=== PATIENT | female | born 1950 | race Caucasian/White ===

== ENCOUNTER 2018-04-06 01:42 | Outpatient (CLI) | payer MEDICARE, BC, SELFPAY ==
[2018-04-06 08:54] LABS: HCT 47.5 % (36.0-46.0); Mean Corp. HGB Concentration 33.7 g/dL (32.0-36.0); Mean Corpuscular Hemoglobin 29.8 pg (27.0-33.0); Mean Corpuscular Volume 88.5 fL (80-95); Mean Platelet Volume 11.8 fL (8.0-11.0); Platelet Count 253 x1000/uL (130-400); RBC 5.37 m/cumm (4.00-5.20); RBC Distribution Width 13.8 % (11.7-14.6); White Blood Cell Count 7.97 k/cumm (4.4-10.8)
[2018-04-06 09:44] LABS: ALT 16 U/L (12-78); AST 13 U/L (15-37); Albumin 3.9 g/dL (3.4-5.0); Alkaline Phosphatase 81 U/L (46-116); Anion Gap 12.8 mmol/L (3-11); BUN 11 mg/dL (7-18); Bilirubin, Total 0.7 mg/dL (0.2-1.0); CO2 25.2 mmol/L (21.0-32.0); CREATININE 0.82 mg/dL (0.55-1.02); Calcium 9.3 mg/dL (8.5-10.1); Chloride 104 mmol/L (98-107); Cholesterol 315 mg/dL (50-200); Glucose 95 mg/dL (70-100); HDL Cholesterol 50 mg/dL (40-60); LDL CHOLESTEROL 239 mg/dL (<100); Potassium 3.2 mmol/L (3.5-5.1); Sodium 142 mmol/L (136-145); TSH (W/Ref FT4) 0.97 uIU/mL (0.358-3.74); Total Protein 6.8 g/dL (6.4-8.2); Triglyceride 180 mg/dL (30-150)
== END 2018-04-06 02:02 ==
PROVIDERS: PCP Student in an Organized Health Care Education/Training Program; Visit Provider Student in an Organized Health Care Education/Training Program
DX: E78.5 Hyperlipidemia, unspecified (principal); F41.9 Anxiety disorder, unspecified; R53.83 Other fatigue; K52.839 Microscopic colitis, unspecified; M81.0 Age-related osteoporosis without current pathological fracture; Z79.899 Other long term (current) drug therapy; Z92.29 Personal history of other drug therapy
CPT/HCPCS: 36415; 80053; 80061; 83721; 85027; 84443

== ENCOUNTER 2018-04-28 01:08 | Outpatient (CLI) | payer MEDICARE, BC, SELFPAY ==
--- NOTE | 2018-04-28 07:16 | DI.US_ITS ---
SYMPTOM/DIAGNOSIS: LOCALIZED PAIN, LT MID-UPPER QUAD, COLITIS, R10.12, K52.839 ABDOMEN ULTRASOUND: The liver is normal in size and echogenicity. The gallbladder is unremarkable without evidence of stones or wall thickening. No biliary dilatation is seen. The kidneys, spleen and pancreas are unremarkable. There is some calcification in the abdominal aorta which is normal in diameter. IMPRESSION: Negative abdomen ultrasound.
== END 2018-04-28 01:28 ==
PROVIDERS: PCP Student in an Organized Health Care Education/Training Program; Visit Provider Student in an Organized Health Care Education/Training Program
DX: R10.12 Left upper quadrant pain (principal); K52.839 Microscopic colitis, unspecified
CPT/HCPCS: 76700

== ENCOUNTER 2018-06-16 13:49 | Outpatient (CLI) | payer MEDICARE, BC, SELFPAY ==
[2018-06-16 14:56] LABS: Anion Gap 9.7 mmol/L (3-11); BUN 9 mg/dL (7-18); CO2 30.3 mmol/L (21.0-32.0); CREATININE 0.83 mg/dL (0.55-1.02); Calcium 9.1 mg/dL (8.5-10.1); Chloride 105 mmol/L (98-107); Glucose 98 mg/dL (70-100); HCT 44.3 % (36.0-46.0); HGB 15.1 g/dL (12.0-15.5); Mean Corp. HGB Concentration 34.1 g/dL (32.0-36.0); Mean Corpuscular Hemoglobin 30.2 pg (27.0-33.0); Mean Corpuscular Volume 88.6 fL (80-95); Mean Platelet Volume 11.9 fL (8.0-11.0); Platelet Count 257 x1000/uL (130-400); Potassium 3.3 mmol/L (3.5-5.1); RBC Distribution Width 14.3 % (11.7-14.6); Sodium 145 mmol/L (136-145); White Blood Cell Count 7.14 k/cumm (4.4-10.8)
== END 2018-06-16 14:09 ==
PROVIDERS: PCP Student in an Organized Health Care Education/Training Program; Visit Provider Student in an Organized Health Care Education/Training Program
DX: R71.8 Other abnormality of red blood cells (principal); D58.2 Other hemoglobinopathies; K58.9 Irritable bowel syndrome, unspecified; K52.839 Microscopic colitis, unspecified; E87.6 Hypokalemia
CPT/HCPCS: 36415; 80048; 85027; 83735

== ENCOUNTER 2018-07-07 11:13 | Outpatient (CLI) | payer MEDICARE, BC, SELFPAY ==
[2018-07-07 13:13] LABS: Potassium 3.6 mmol/L (3.5-5.1)
== END 2018-07-07 11:33 ==
PROVIDERS: PCP Student in an Organized Health Care Education/Training Program; Visit Provider Student in an Organized Health Care Education/Training Program
DX: E87.6 Hypokalemia (principal)
CPT/HCPCS: 36415; 84132

== ENCOUNTER 2018-08-24 14:00 | Outpatient (CLI) | payer MEDICARE, BC, SELFPAY ==
[2018-08-24 15:12] LABS: Anion Gap 9.8 mmol/L (3-11); BUN 13 mg/dL (7-18); CO2 27.2 mmol/L (21.0-32.0); CREATININE 0.84 mg/dL (0.55-1.02); Calcium 9.4 mg/dL (8.5-10.1); Chloride 104 mmol/L (98-107); Glucose 108 mg/dL (70-100); Potassium 4.1 mmol/L (3.5-5.1); Sodium 141 mmol/L (136-145)
== END 2018-08-24 14:20 ==
PROVIDERS: PCP Student in an Organized Health Care Education/Training Program; Visit Provider Student in an Organized Health Care Education/Training Program
DX: E87.6 Hypokalemia (principal); K58.9 Irritable bowel syndrome, unspecified
CPT/HCPCS: 36415; 80048

== ENCOUNTER 2018-11-04 09:30 | Outpatient (CLI) | payer MEDICARE, BC, SELFPAY ==
[2018-11-04 13:45] LABS: Anion Gap 9.6 mmol/L (3-11); BUN 13 mg/dL (7-18); CO2 29.4 mmol/L (21.0-32.0); CREATININE 0.77 mg/dL (0.55-1.02); Calcium 9.2 mg/dL (8.5-10.1); Chloride 104 mmol/L (98-107); Glucose 97 mg/dL (70-100); Potassium 3.3 mmol/L (3.5-5.1); Sodium 143 mmol/L (136-145)
== END 2018-11-04 09:50 ==
PROVIDERS: PCP Student in an Organized Health Care Education/Training Program; Visit Provider Student in an Organized Health Care Education/Training Program
DX: K58.9 Irritable bowel syndrome, unspecified (principal); Z86.39 Personal history of other endocrine, nutritional and metabolic disease
CPT/HCPCS: 36415; 80048

== ENCOUNTER 2018-11-13 15:52 | Outpatient (CLI) | payer MEDICARE, BC, SELFPAY ==
[2018-11-13 17:00] LABS: Anion Gap 9.9 mmol/L (3-11); BUN 15 mg/dL (7-18); CO2 28.1 mmol/L (21.0-32.0); CREATININE 1.02 mg/dL (0.55-1.02); Calcium 9.4 mg/dL (8.5-10.1); Chloride 104 mmol/L (98-107); Estimated GFR 53.73 (mL/min/1.73m2); Glucose 106 mg/dL (70-100); Potassium 4.3 mmol/L (3.5-5.1); Sodium 142 mmol/L (136-145)
== END 2018-11-13 16:12 ==
PROVIDERS: PCP Student in an Organized Health Care Education/Training Program; Visit Provider Student in an Organized Health Care Education/Training Program
DX: E87.6 Hypokalemia (principal)
CPT/HCPCS: 36415; 80048

== ENCOUNTER 2019-11-10 02:38 | Outpatient (CLI) | payer MEDICARE, BC, SELFPAY ==
[2019-11-10 16:30] LABS: Anion Gap 9.2 mmol/L (3-11); BUN 14 mg/dL (7-18); CO2 27.8 mmol/L (21.0-32.0); Calcium 9.2 mg/dL (8.5-10.1); Chloride 105 mmol/L (98-107); Glucose 86 mg/dL (74-106); Sodium 142 mmol/L (136-145)
== END 2019-11-10 02:58 ==
PROVIDERS: PCP Student in an Organized Health Care Education/Training Program; Visit Provider Student in an Organized Health Care Education/Training Program
DX: K58.9 Irritable bowel syndrome, unspecified (principal); E87.6 Hypokalemia
CPT/HCPCS: 36415; 80048

== ENCOUNTER 2021-02-19 01:50 | Outpatient (CLI) | payer MEDICARE, BC, SELFPAY ==
--- NOTE | 2021-02-19 07:30 | DI.MAMMO_ITS ---
Exam(s) MAMMO SCREENING EXAM: MAMMO SCREENING CLINICAL HISTORY: screening,z12.39 TECHNIQUE: Mammograms were interpreted according to the usual protocol including computer analysis w [email or web address] CAD system, tomosynthesis and C-view imaging. COMPARISON: 2012 and 2014 FINDINGS: The breasts are composed of scattered fibroglandular densities, Breast Density category B. No suspicious masses or suspicious microcalcifications are seen. Stable area of nodularity medial le ft breast. No skin thickening or abnormal axillary lymph nodes are seen. There has been no significant change from prior exams. IMPRESSION: BI-RADS Cat 2 - Benign Findings Yearly screening mammography is recommended. Breast Density - Category B, scattered fibroglandular densities. A negative radiographic report should not delay biopsy if a dominant or clinically suspicious mass is present. Up to ten percent of cancers are not identified on mammography. A negative report may reinforce clinical impression. Adenosis and dense breasts may obscure an underlying neoplasm. False positive reports average 6 to 10%. Patient will receive a letter notifying them of these results.
== END 2021-02-19 02:10 ==
PROVIDERS: PCP Student in an Organized Health Care Education/Training Program; Visit Provider Student in an Organized Health Care Education/Training Program
DX: Z12.31 Encounter for screening mammogram for malignant neoplasm of breast (principal)
CPT/HCPCS: 77063; 77067

== ENCOUNTER 2021-10-05 16:34 | Outpatient (REF) | payer MEDICARE, BC, SELFPAY ==
[2021-10-07 14:36] LABS: COVID-19 RT-PCR UVMMC Result Negative (Negative)
[2021-10-08 14:47] LABS: Influenza A RNA Result Positive (Negative); Influenza B RNA Result Negative (Negative); RSV RNA Result Negative (Negative)
== END 2021-10-05 16:35 | disposition home or self-care (01) ==
LOC: LBN 16:34
PROVIDERS: PCP Student in an Organized Health Care Education/Training Program; Visit Provider Student in an Organized Health Care Education/Training Program
DX: Z20.822 Contact with and (suspected) exposure to COVID-19 (principal); R06.9 Unspecified abnormalities of breathing; R50.9 Fever, unspecified; R09.89 Other specified symptoms and signs involving the circulatory and respiratory systems; J06.9 Acute upper respiratory infection, unspecified
CPT/HCPCS: 87449; 87631; U0003; U0005

== ENCOUNTER 2021-11-19 00:01 | Observation (INO) | payer MEDICARE, BC, SELFPAY ==
[2021-11-19] VITALS (29 sets, daily range): BP systolic 82–115; BP diastolic 46–70; PULSE 49–80; RESP 11–27; TEMP 35.5–37; O2SAT 90–96
--- NOTE | 2021-11-19 | DI.CT_ITS ---
Exam(s) CT ABDOMEN PELVIS WO EXAM: CT ABDOMEN PELVIS WO CLINICAL HISTORY: abdominal pain, diarrhea, weakness, hx colitis. TECHNIQUE: Imaging Protocol: Axial computed tomography images with coronal and sagittal reformatted images were created and reviewed CONTRAST MATERIAL: Intravenous: none Oral: None COMPARISON: No exams were available for comparison FINDINGS: VISUALIZED LUNG BASES: Mild increased markings in the lung bases, more so on the right side. No pleu ral effusions.. ABDOMEN: There is no ascites. LIVER: There are no obvious focal hepatic lesions evident of this noninfused study. GALLBLADDER/BILIARY: No obvious gallbladder pathology. CBD is not dilated. PANCREAS: No evidence of pancreatic mass nor dilatation of the pancreatic duct. SPLEEN: Spleen is not enlarged. No obvious intrasplenic lesions. ADRENALS: There are no significant adrenal masses. KIDNEYS:No cysts evident. No solid renal masses. No calculi nor hydronephrosis. . ABDOMINAL AORTA: There is a mild fusiform infrarenal abdominal aortic aneurysm which exhibits maximum external diameter 2.4 cm. Common iliac arteries exhibit normal diameters. LYMPH NODES: There is no retroperitoneal nor paraaortic adenopathy. ABDOMINAL WALL: No evidence of significant anterior abdominal wall nor inguinal hernia. GI: There is no evidence of bowel obstruction, free air, nor abscess. PELVIS: LYMPH NODES: There is no intrapelvic nor inguinal adenopathy. GI: No evidence of appendicitis.No evidence of sigmoid diverticulitis. URINARY BLADDER: No calculi nor obvious masses evident REPRODUCTIVE: Unremarkable OSSEOUS: No significant osseous lesions. IMPRESSION: 1. No obvious acute findings in the abdomen pelvis. If clinically indicated this study could be repe ated with oral and IV contrast. 2. Mild fusiform infrarenal abdominal aortic aneurysm with maximum external diameter of 2.4 cm. 3. No ascites. RADIATION DOSE DELIVERED: 620.15mGy.cm Total DLP DATA REPOSITORY: All CT scans at this facility are submitted to the National Radiology Data Registry (NRDR) Dose Index Registry (DIR) with the [employer] (ACR). RADIATION OPTIMIZATION: All CT scans at this facility use at least one of these dose optimization te chniques: automated exposure control; mA and/or kV adjustment per patient size (includes targeted exa ms where dose is matched to clinical indication); or iterative reconstruction.
--- NOTE | 2021-11-19 | RT.EKG_ITS ---
APPROVED REPORT Exam: Resting ECG Reason for Exam: weakness Patient Location: E HR:61 bpm ECG Measurements Heart Rate 61 AXIS MA 162 P 74 QRSd 83 QRS 7 QT 438 T 36 QTc 442 Conclusion Sinus rhythm...normal P axis, V-rate 60- 99 Low voltage, extremity and precordial leads...extremity<0.5mV, precordial<1.0mV sinus rhythm, normal axis, normal intervals, non ischemic
--- NOTE | 2021-11-19 00:06 | DI.RAD_ITS ---
Exam(s) XR CHEST 1V IN DI DEPT EXAM: XR CHEST 1V IN DI DEPT CLINICAL HISTORY: fatigue,weakness, hypotension. TECHNIQUE: 2D digital imaging was performed. COMPARISON: No exams were available for comparison FINDINGS: Single AP portable view. Heart size is upper normal. The mediastinum is not widened. Lungs are clear. No infiltrates nor obvious pleural effusions. IMPRESSION: No acute pulmonary findings on this single AP portable view of the chest. DATA REPOSITORY: RADIATION DOSE DELIVERED: All CT scans at this facility use at least one of these dose optimization techniques: automated exposure control; mA and/or kV adjustment per patient size (includes targeted e xams where dose is matched to clinical indication); or iterative reconstruction.
--- NOTE | 2021-11-19 00:11 | ED.GENADUL_ITS ---
Discharge Plan Disposition Patient Disposition: [facility] INPATIENT Condition: Stable Discharge Details Chief Complaint: Nausea/Vomit/Diar Clinical Impression: Enterocolitis, Dehydration Primary Care Provider: Amparo Brewer ED Provider: Gino Sorto Home Meds and New Rx's Prescriptions: No Action potassium chloride 20 mEq tablet extended release 20 meq PO DAILY Qty: 30 1RF Rx Instructions: 5 days of K, then recheck with labs. tumeric 1 cap PO DAILY probiotics 1 tab PO DAILY lorazepam 0.5 mg tablet 0.5 mg PO ONCE Qty: 10 0RF Rx Instructions: Trial for panic episode, monitor and review loratadine 10 mg tablet 10 mg PO DAILY Qty: 30 1RF mirtazapine 7.5 mg tablet 7.5 mg PO QHS Qty: 90 1RF Rx Instructions: Lower dose albuterol sulfate [ProAir HFA] 90 mcg/actuation HFA aerosol inhaler 1 puff inhalation Q6H PRN (Reason: shortness of breath or wheezing) Qty: 8.5 1RF Rx Instructions: Trial 4/day over the wkd; then 2/day x 1 week.. Combivent Respimat 20-100 mcg/actuation mist 1 puff inhalation Q6H Qty: 4 1RF Rx Instructions: Trial for cough/congestion (use INSTEAD of albuterol) acetaminophen 325 MG tablet 325 mg PO PRN PRN Medical Decision Making 71-year-old female history of colitis presents with generalized fatigue nausea vomiting and diarrhea that began this evening, hypotension in the field responding to fluids, dry oral mucosa, pale dry skin, subjective lower abdominal discomfort without distention or peritoneal signs. Consider dehydration in the setting of colitis versus electrolyte abnormality versus UTI versus viral syndrome versus atypical ACS versus vasovagal/orthostatic presyncope, low suspicion for PE given no respiratory symptomatology, low suspicion for GI bleed given history of brown loose stool. We will continue with fluid hydration antiemetics labs imaging close reassessment disposition pending results and reassessment of vital signs and symptoms 1: 58 patient appearing improved with fluids and medication. Evidence of enterocolitis on imaging. Has not urinated yet consistent with severe dehydration. Patient will benefit from admission for continued IV fluid, will talk to inpatient team regarding starting antibiotics HPI General Date/Time Provider Initiated Documentation: 11/19/21 00:06 . HPI Narrative: 71-year-old female history of colitis presents with generalized fatigue nausea vomiting and diarrhea that began this evening, also lower abdominal discomfort, brown loose stool before arrival, was reported to be hypotensive to the 80s systolic in the field, given normal saline in route, patient denies chest pain or shortness of breath. No recent travel no recent hospitalization Related Data Home Medications Medication Instructions Recorded Confirmed acetaminophen 325 mg tablet 325 mg PO PRN PRN 09/25/12 11/19/21 probiotics 1 tab PO DAILY 08/07/18 11/19/21 tumeric 1 cap PO DAILY 08/07/18 11/19/21 potassium chloride 20 mEq 20 meq PO DAILY very low K #30 tabs 11/06/18 11/06/21 tablet,extended release lorazepam 0.5 mg tablet 0.5 mg PO ONCE #10 tabs 11/12/19 11/19/21 albuterol sulfate 90 mcg/actuation 1 puff inhalation Q6H PRN 10/05/21 11/06/21 aerosol inhaler (ProAir HFA) shortness of breath or wheezing #8.5 grams ipratropium 20 mcg-albuterol 100 1 puff inhalation Q6H #4 grams 10/05/21 11/19/21 mcg/actuation mist for inhalation (Combivent Respimat) loratadine 10 mg tablet 10 mg PO DAILY #30 tabs 11/06/21 11/06/21 mirtazapine 7.5 mg tablet 7.5 mg PO QHS #90 tabs 11/06/21 11/19/21 Previous Rx's Medication Instructions Recorded potassium chloride 20 mEq 20 meq PO DAILY very low K #30 tabs 11/06/18 tablet,extended release lorazepam 0.5 mg tablet 0.5 mg PO ONCE #10 tabs 11/12/19 albuterol sulfate 90 mcg/actuation 1 puff inhalation Q6H PRN 10/05/21 aerosol inhaler (ProAir HFA) shortness of breath or wheezing #8.5 grams ipratropium 20 mcg-albuterol 100 1 puff inhalation Q6H #4 grams 10/05/21 mcg/actuation mist for inhalation (Combivent Respimat) loratadine 10 mg tablet 10 mg PO DAILY #30 tabs 11/06/21 mirtazapine 7.5 mg tablet 7.5 mg PO QHS #90 tabs 11/06/21 Allergies Allergy/AdvReac Type Severity Reaction Status Date / Time alendronate sodium AdvReac Intermediate GI Verified 11/19/21 00:08 INTOLERANCE & ARM RASH General Stated Complaint: Nausea/Vomit/Diar GRAYSON: 3 Review of Systems Narrative: Review of Systems Constitutional: Fatigue Eyes: negative ENT: negative Cardiovascular: negative Respiratory: negative Gastrointestinal: Nausea vomiting diarrhea : negative Musculoskeletal: negative Skin: negative Neurologic: negative Psych: negative PFSH All Active Problems Enterocolitis (Acute) Dehydration (Acute) Sialolith (Acute) Clinical Dx, but deeper than usual ppt.. monitoring w/ possible ENT ref. Cataracts, bilateral (Acute) per pt report [ ] Edel notes Cataract (Chronic) Eyesight diminished (Acute) COPD suggested by initial evaluation (Acute) URI (upper respiratory infection) (Acute) Sleep difficulties (Acute) Half dose Mirtazepam has helped, agree to continue (10/2019) IBS (irritable bowel syndrome) (Chronic) Improved with smaller meals, low sugar diet. 04/2018 Vitamin D deficiency, unspecified (Acute 09/17/11) Tobacco use disorder (Acute 04/10/15) Osteoporosis (Acute 09/17/11) Was on Fosamax for ~9 months but did not tolerate (bowel issues & rash) Microscopic colitis (Acute 06/07/14) Menopausal flushing (Acute 02/17/13) Zoloft Hyperlipidemia, unspecified (Acute 04/10/15) 03/2016 labwork: 10-year ASCVD risk = ~9.2% --> pt already on moderate intensity statin therapy, continue Family history of colon cancer (Acute 02/10/13) Anxiety (Acute 02/04/12) Advance directive in chart (Acute 04/17/16) Medical History (Updated 11/19/21 @ 02:08 by iGno Sorto MD) Anxiety Hyperlipidemia Microscopic colitis Osteoporosis Postmenopausal Surgical History Colonoscopy - IV Sedation (06/06/14) Dr Quintanilla Tubal Ligation, 1980s Family History Father , colon CA at age 50. Colon cancer Brother Colon cancer diagnosed 2012 Social History Smoking/Tobacco Use Status: Current every day Tobacco Type: cigarettes Smoking packs per day: 0.75 Smoking cigarettes per day: 15.0 Smoking risk assessment performed?: Yes Alcohol Intake: never Drug use: Never Substance use type: does not use Household members: spouse Housing: house Number of Children: 2 current occupation: plastic parts fabricator [employer] Current gender identity: female What is your relationship status?: Panel score (0-1 are the most socially isolated patients): 1 What type of physical activity do you participate in: none Seatbelt use: always Drive intox or ride w/intox otr company truck driver: No Working smoke detector in home: Yes Carbon monox detector in home: Yes Do you feel safe at home: Yes Do you feel safe in your relationship?: Yes Exam Narrative Exam Narrative: Physical Examination General: alert, awake, cooperative, appears very fatigued HEENT: normocephalic, atraumatic; PERRL, EOM intact, conjunctiva normal; no nasal discharge; dry oral mucosa Neck: supple, trachea midline; full ROM Chest: normal to inspection Respiratory: normal respiratory effort, speaking in full sentences, clear to auscultation, no wheezing, rales or rhonchi Cardiac: regular rate, regular rhythm, S1S2 intact, no murmurs rubs or gallops GI: abdomen soft, subjective tenderness in the lower abdomen without guarding or rebounding, non-distended; no palpable mass or hepatosplenomegaly Skin: Pale, dry Neuro: AAOx3, normal speech, moving all extremities Extremities: No peripheral edema Psych: Appropriate mood and affect Course Vital Signs Vital signs: Vital Signs Temperature 36.3 C L 11/19/21 00:04 Pulse 64 11/19/21 00:04 Respiratory Rate 20 11/19/21 00:04 Pulse Oximetry 93 11/19/21 00:04 Temperature 36.3 C L 11/19/21 00:04 Temperature Source Skin 11/19/21 00:04 Pulse 64 11/19/21 00:04 Respiratory Rate 20 11/19/21 00:04 Pulse Oximetry 93 11/19/21 00:04 Pain Level 6 11/19/21 00:04
[2021-11-19] MEDS: Ondansetron 4 MG/2 ML VIAL IVP (00:40)
[2021-11-19] MEDS: Normal Saline 1,000 ML 1000 ML IV (00:41)
--- NOTE | 2021-11-19 00:45 | DI.CT_ITS ---
Exam(s) CT HEAD WO EXAM: CT HEAD WO CLINICAL HISTORY: weakness, possible resolved slurred speech and fal. TECHNIQUE: Imaging Protocol: Axial computed tomography images with coronal and sagittal reformatted images were created and reviewed COMPARISON: No exams were available for comparison FINDINGS: There are no skull fractures nor fluid in the visualized paranasal sinuses. There is no evidence of intracranial hemorrhage, mass effect, or shift of midline structures. There are no extra-axial fluid collections. The ventricles are not enlarged or shifted and there is no blo od within the ventricular system nor within the basal cisterns. IMPRESSION: No acute intracranial findings on this noninfused CT scan of the brain. If clinically indicated follow-up MRI can be performed for added sensitivity and specificity. RADIATION DOSE DELIVERED: 669.51mGy.cm Total DLP DATA REPOSITORY: All CT scans at this facility are submitted to the National Radiology Data Registry (NRDR) Dose Index Registry (DIR) with the [employer] (ACR). RADIATION OPTIMIZATION: All CT scans at this facility use at least one of these dose optimization te chniques: automated exposure control; mA and/or kV adjustment per patient size (includes targeted exa ms where dose is matched to clinical indication); or iterative reconstruction.
[2021-11-19 00:52] LABS: Abs Immature Grans 0.01 10^3/uL (0.0-0.06); Absolute Basophil Count 0.02 10^3/uL (0.0-0.2); Absolute Eosinophil Count 0.11 10^3/uL (0.0-0.7); Absolute Lymphocyte Count 2.53 10^3/uL (1.2-3.4); Absolute Monocyte Count 0.39 10^3/uL (0.1-0.8); Absolute Neutrophil Count 3.63 10^3/uL (1.2-6.7); Basophils % 0.3; Eosinophils % 1.6; HCT 39.9 % (36.0-46.0); Immature Grans % 0.1; Lymphocytes % 37.8; MCH 30.2 pg (27.0-33.0); MCHC 32.6 % (32.0-36.0); MCV 93 fL (80-95); MPV 10.8 fL (8.0-11.0); Monocytes % 5.8; Neutrophils % 54.4; Platelet Count 214 10^3/uL (130-400); RDW 13.4 % (11.7-14.6); RDW-SD 45.8 fL; WBC 6.69 10^3/uL (4.4-10.8)
[2021-11-19 01:04] LABS: ALT 15 U/L (14-59); AST 11 U/L (15-37); Albumin 3.2 g/dL (3.4-5.0); Alkaline Phosphatase 63 U/L (46-116); Anion Gap 8.2 mmol/L (3-11); BUN 17 mg/dL (7-18); Bilirubin, Total 0.2 mg/dL (0.2-1.0); CO2 26.8 mmol/L (21.0-32.0); CREATININE 0.8 mg/dL (0.55-1.02); Calcium 8.3 mg/dL (8.5-10.1); Chloride 105 mmol/L (98-107); Glucose 102 mg/dL (74-106); Lipase 75 U/L (73-393); Magnesium 2.1 mg/dL (1.8-2.4); Potassium 3.9 mmol/L (3.5-5.1); Sodium 140 mmol/L (136-145); TSH (W/Ref FT4) 5.69 uIU/mL (0.36-3.74); Total Protein 6.2 g/dL (6.4-8.2); Troponin I < 50 ng/L (<or=60)
[2021-11-19 01:20] LABS: COVID-19 PCR Negative (Negative); Influenza A PCR Negative (Negative); Influenza B PCR Negative (Negative); RSV PCR Negative (Negative)
[2021-11-19 01:21] LABS: FREE T4 0.97 ng/dL (0.76-1.46)
[2021-11-19 01:28] LABS: Source Nasopharynx
--- NOTE | 2021-11-19 01:30 | DI.VRAD_ITS ---
PROCEDURE INFORMATION: Exam: CT Head Without Contrast Exam date and time: 11/19/2021 1:16 AM Age: 71 years old Clinical indication: Stroke-like symptoms; Speech disturbance; Generalized weakness; Additional info: Weakness, possible resolved slurred speech and fal TECHNIQUE: Imaging protocol: Computed tomography of the head without contrast. Radiation optimization: All CT scans at this facility use at least one of these dose optimization techniques: automated exposure control; mA and/or kV adjustment per patient size (includes targeted exams where dose is matched to clinical indication); or iterative reconstruction. Other technique: STROKE PROTOCOL was implemented. COMPARISON: No relevant prior studies available. FINDINGS: Brain: Normal. No hemorrhage. Unremarkable white matter. No mass effect. Cerebral ventricles: No ventriculomegaly. Paranasal sinuses: Visualized sinuses are unremarkable. No fluid levels. Mastoid air cells: Visualized mastoid air cells are well aerated. Bones/joints: Unremarkable. No acute fracture. Soft tissues: Unremarkable. Vasculature: Distal carotid arterial calcifications noted. IMPRESSION: Negative for intracranial hemorrhage or other acute intracranial abnormality. ASSESSMENT: ASPECTS ([place] Stroke Program Early CT Score) is 10. Dictated and Authenticated by: Edison Johansen MD. Ordering:LOIS Christian MD
--- NOTE | 2021-11-19 01:45 | DI.VRAD_ITS ---
PROCEDURE INFORMATION: Exam: CT Abdomen And Pelvis Without Contrast Exam date and time: 11/19/2021 1:22 AM Age: 71 years old Clinical indication: Nausea; Prior surgery; Surgery date: 6+ months; Surgery type: Tubal ligation; Patient HX: Abdominal pain, diarrhea, weakness, HX colitis TECHNIQUE: Imaging protocol: Computed tomography of the abdomen and pelvis without contrast. Radiation optimization: All CT scans at this facility use at least one of these dose optimization techniques: automated exposure control; mA and/or kV adjustment per patient size (includes targeted exams where dose is matched to clinical indication); or iterative reconstruction. COMPARISON: US ABDOMEN 04/28/2018 1:21 PM FINDINGS: Lungs: Emphysematous changes noted in the lung bases. Liver: Unremarkable noncontrast liver. Gallbladder and bile ducts: Normal. No calcified stones. No ductal dilation. Pancreas: Normal. No ductal dilation. Spleen: Normal. No splenomegaly. Adrenal glands: Normal. No mass. Kidneys and ureters: No hydronephrosis. Nondilated ureters. No stones. Stomach and bowel: Unremarkable stomach. Nondilated small bowel. Fat stranding noted around most of the small bowel. Moderate wall thickening noted in the colon, with submucosal fat deposition. Mild fluid is scattered in the colon. No pneumatosis observed. Appendix: Normal appendix. Intraperitoneal space: No free fluid. No free air. No abscess. Vasculature: No mesenteric or portal venous gas. Moderate vascular calcifications. No aneurysm. Lymph nodes: Unremarkable. No enlarged lymph nodes. Urinary bladder: Unremarkable as visualized. Reproductive: Unremarkable as visualized. Bones/joints: No compression fracture. Mild disc space narrowing and disc bulge noted at L3-L4. Facet arthropathy also noted at several levels. Soft tissues: Unremarkable. IMPRESSION: 1. Findings of enterocolitis. 2. No bowel obstruction. 3. No abscess. Dictated and Authenticated by: Edison Johansen MD. Ordering:LOIS Christian MD
--- NOTE | 2021-11-19 01:45 | DI.VRAD_ITS ---
PROCEDURE INFORMATION: Exam: XR Chest Exam date and time: 11/19/2021 1:32 AM Age: 71 years old Clinical indication: Other: Fatigue, weakness, hypotension TECHNIQUE: Imaging protocol: Radiologic exam of the chest. Views: 1 view. COMPARISON: CT CHEST - LUNG CANCER SCREENING 04/29/2016 12:54 PM FINDINGS: Tubes, catheters and devices: Monitoring wires noted. Lungs: Lungs are hyperaerated. No consolidation. Pulmonary vessels are not congested. Pleural spaces: Unremarkable. No pleural effusion. No pneumothorax. Heart/Mediastinum: Unremarkable. No cardiomegaly. Bones/joints: Unremarkable. IMPRESSION: No acute cardiopulmonary abnormality. Dictated and Authenticated by: Edison Johansen MD. Ordering:LOIS Christian MD
[2021-11-19] MEDS: Lactated Ringers 1,000 ML 1000 ML IV (03:04)
[2021-11-19 03:17] LABS: Troponin I < 50 ng/L (<or=60)
[2021-11-19] MEDS: DEXTROSE 5%-LACTATED RINGERS 1,000 ML 75 ML IV (04:12)
--- NOTE | 2021-11-19 05:32 | HPE_ITS ---
Date of service: 11/19/21 Time of Service: 05:32 Assessment and Plan Assessment and plan (1) Dehydration: Start date: 11/19/21 Status: Acute Assessment and plan: This is a 71-year-old lady who had sudden onset of GI symptoms with nausea, vomiting and diarrhea presented to the ED after syncopal episode with her sudden onset of symptoms. She had no sequela from her fall. Head CT unrevealing and CT of the abdomen did reveal enterocolitis. Patient was placed on bowel rest and IV hydration did help her feel better. She still has a slightly low blood pressure. She is comfortable lying in bed. We will continue IV hydration and advance diet treating symptoms. (2) Syncope: Start date: 11/19/21 Status: Chronic Assessment and plan: Most likely secondary to vagal response and dehydration. Observe on cardiac monitoring. (3) Enterocolitis: Start date: 11/19/21 Status: Acute Assessment and plan: Bowel rest with advance diet slowly. Patient does have a history of microscopic colitis and IBS with may be contributing some of her GI symptoms and ex acerbation situation. If she has increasing discomfort with advancing diet further evaluation regular. (4) COPD suggested by initial evaluation: Status: Chronic Assessment and plan: Stable exam of vision and will monitor with outpatient therapy for rescue therapy. There does not appear to be any evidence of aspiration after her syncopal episode. History of Present Illness History of Present Illness Chief Complaint: Syncope with nausea and vomiting, diarrhea Narrative: This is a 71-year-old female patient who had lobster at her son's house the night prior to admission and during the evening began to have nausea with vomiting and diarrhea shortly afterwards feeling lightheaded and did have an episode of syncope. Brought to the ED for evaluation about being dehydrated and was placed on IV fluids with her nausea and vomiting controlled with medical th erapy and bowel rest and patient feeling better overall. She had no fever. She denies any hematochezia or hematemesis. She does have 2 alcoholic drinks at night but these were strong and she usually has 1. No one else was sick after the meal. At the time I examined the patient she felt close to baseline exudate on IV hydration with from breakfast pending. She offers no other complaints. Patient did strike her head with her fall but CT of the head was negative in the ED. CT of the abdomen in the ED did show enterocolitis with no obstruction. Patient does have a history of microscopic colitis and IBS. Review of Systems Narrative: 13 point review of systems otherwise unrevealing or stable. PFSH All Active Problems Syncope (Chronic) Enterocolitis (Acute) Dehydration (Acute) Sialolith (Acute) Clinical Dx, but deeper than usual ppt.. monitoring w/ possible ENT ref. Cataracts, bilateral (Acute) per pt report [ ] Edel notes Cataract (Chronic) Eyesight diminished (Acute) COPD suggested by initial evaluation (Chronic) URI (upper respiratory infection) (Acute) Sleep difficulties (Acute) Half dose Mirtazepam has helped, agree to continue (10/2019) IBS (irritable bowel syndrome) (Chronic) Improved with smaller meals, low sugar diet. 04/2018 Vitamin D deficiency, unspecified (Acute 09/17/11) Tobacco use disorder (Acute 04/10/15) Osteoporosis (Acute 09/17/11) Was on Fosamax for ~9 months but did not tolerate (bowel issues & rash) Microscopic colitis (Acute 06/07/14) Menopausal flushing (Acute 02/17/13) Zoloft Hyperlipidemia, unspecified (Acute 04/10/15) 03/2016 labwork: 10-year ASCVD risk = ~9.2% --> pt already on moderate intensity statin therapy, continue Family history of colon cancer (Acute 02/10/13) Anxiety (Acute 02/04/12) Advance directive in chart (Acute 04/17/16) Medical History (Updated 11/19/21 @ 05:42 by Lito Pagan) Anxiety Hyperlipidemia Microscopic colitis Osteoporosis Postmenopausal Surgical History Colonoscopy - IV Sedation (06/06/14) Dr Quintanilla Tubal Ligation, 1980s Family History Father , colon CA at age 50. Colon cancer Brother Colon cancer diagnosed 2012 Social History Smoking/Tobacco Use Status: Current every day Tobacco Type: cigarettes Smoking packs per day: 0.75 Smoking cigarettes per day: 15.0 Smoking risk assessment performed?: Yes Alcohol Intake: never Drug use: Never Substance use type: does not use Household members: spouse Housing: house Number of Children: 2 current occupation: automotive parts counter person [employer] Current gender identity: female What is your relationship status?: Panel score (0-1 are the most socially isolated patients): 1 What type of physical activity do you participate in: none Seatbelt use: always Drive intox or ride w/intox driver service technician: No Working smoke detector in home: Yes Carbon monox detector in home: Yes Do you feel safe at home: Yes Do you feel safe in your relationship?: Yes Meds Allergies and Home Medications Allergies Allergy/AdvReac Type Severity Reaction Status Date / Time alendronate sodium AdvReac Intermediate GI Verified 11/19/21 00:08 INTOLERANCE & ARM RASH Home Medications Medication Instructions Recorded Confirmed Type acetaminophen 325 mg tablet 325 mg PO PRN PRN 09/25/12 11/19/21 History probiotics 1 tab PO DAILY 08/07/18 11/19/21 History tumeric 1 cap PO DAILY 08/07/18 11/19/21 History potassium chloride 20 mEq 20 meq PO DAILY very low K #30 tabs 11/06/18 11/06/21 Rx tablet,extended release lorazepam 0.5 mg tablet 0.5 mg PO ONCE #10 tabs 11/12/19 11/19/21 Rx albuterol sulfate 90 mcg/actuation 1 puff inhalation Q6H PRN 10/05/21 11/06/21 Rx aerosol inhaler (ProAir HFA) shortness of breath or wheezing #8.5 grams ipratropium 20 mcg-albuterol 100 1 puff inhalation Q6H #4 grams 10/05/21 11/19/21 Rx mcg/actuation mist for inhalation (Combivent Respimat) loratadine 10 mg tablet 10 mg PO DAILY #30 tabs 11/06/21 11/06/21 Rx mirtazapine 7.5 mg tablet 7.5 mg PO QHS #90 tabs 11/06/21 11/19/21 Rx Exam Narrative Exam Narrative: General: Patient appears appropriate for age, alert and oriented x3 and in no acute distress. She is of normal body build. HEENT: Normocephalic, eyes with pupils equal and reactive light symmetrically, extraocular movement intact and sclera anicteric. Oropharynx with moist Koza and normal dentition. Neck: Supple without JVD. Back: Normal posture without CVA tenderness. Breast: Exam deferred. Lungs: Fair aeration with bronchovesicular sounds diffusely, no focalized rales or rhonchi and no expiratory wheeze. Heart: Regular rate and rhythm with no murmurs or gallops appreciated. Abdomen: Normal contour, soft nontender to palpation with no palpable hepatosplenomegaly. No focalizing guarding. Bowel sounds positive in all quadrants. Intestines rectal: Exam deferred. Extremities: Without clubbing, cyanosis or pitting edema. Peripheral pulses intact. Skin: Normal color, warm and dry. Neuro: Cranial nerves II through XII grossly intact, no focalizing motor deficits and no tremor. DTRs physiologic and symmetrical. Psych: Normal affect and mood. No abnormal thought processes. Remote and recent memory intact. Results Imaging Imaging Studies: Exam: CT Abdomen And Pelvis Without Contrast Exam date and time: 11/19/2021 1:22 AM Age: 71 years old Clinical indication: Nausea; Prior surgery; Surgery date: 6+ months; Surgery type: Tubal ligation; Patient HX: Abdominal pain, diarrhea, weakness, HX colitis TECHNIQUE: Imaging protocol: Computed tomography of the abdomen and pelvis without contrast. Radiation optimization: All CT scans at this facility use at least one of these dose optimization techniques: automated exposure control; mA and/or kV adjustment per patient size (includes targeted exams where dose is matched to clinical indication); or iterative reconstruction. COMPARISON: US ABDOMEN 04/28/2018 1:21 PM FINDINGS: Lungs: Emphysematous changes noted in the lung bases. Liver: Unremarkable noncontrast liver. Gallbladder and bile ducts: Normal. No calcified stones. No ductal dilation. Pancreas: Normal. No ductal dilation. Spleen: Normal. No splenomegaly. Adrenal glands: Normal. No mass. Kidneys and ureters: No hydronephrosis. Nondilated ureters. No stones. Stomach and bowel: Unremarkable stomach. Nondilated small bowel. Fat stranding noted around most of the small bowel. Moderate wall thickening noted in the colon, with submucosal fat deposition. Mild fluid is scattered in the colon. No pneumatosis observed. Appendix: Normal appendix. Intraperitoneal space: No free fluid. No free air. No abscess. Vasculature: No mesenteric or portal venous gas. Moderate vascular calcifications. No aneurysm. Lymph nodes: Unremarkable. No enlarged lymph nodes. Urinary bladder: Unremarkable as visualized. Reproductive: Unremarkable as visualized. Bones/joints: No compression fracture. Mild disc space narrowing and disc bulge noted at L3-L4. Facet arthropathy also noted at several levels. Soft tissues: Unremarkable. IMPRESSION: 1. Findings of enterocolitis. 2. No bowel obstruction. 3. No abscess. Exam: CT Head Without Contrast Exam date and time: 11/19/2021 1:16 AM Age: 71 years old Clinical indication: Stroke-like symptoms; Speech disturbance; Generalized weakness; Additional info: Weakness, possible resolved slurred speech and fal TECHNIQUE: Imaging protocol: Computed tomography of the head without contrast. Radiation optimization: All CT scans at this facility use at least one of these dose optimization techniques: automated exposure control; mA and/or kV adjustment per patient size (includes targeted exams where dose is matched to clinical indication); or iterative reconstruction. Other technique: STROKE PROTOCOL was implemented. COMPARISON: No relevant prior studies available. FINDINGS: Brain: Normal. No hemorrhage. Unremarkable white matter. No mass effect. Cerebral ventricles: No ventriculomegaly. Paranasal sinuses: Visualized sinuses are unremarkable. No fluid levels. Mastoid air cells: Visualized mastoid air cells are well aerated. Bones/joints: Unremarkable. No acute fracture. Soft tissues: Unremarkable. Vasculature: Distal carotid arterial calcifications noted. IMPRESSION: Negative for intracranial hemorrhage or other acute intracranial abnormality. Labs Result diagrams: 11/19/21 00:25 11/19/21 00:25 Labs: Laboratory Results - last 24 hr 11/19/21 11/19/21 11/19/21 00:25 00:25 00:41 WBC 6.69 RBC 4.30 Hgb 13.0 Hct 39.9 MCV 93 MCH 30.2 MCHC 32.6 RDW 13.4 Plt Count 214 MPV 10.8 Immature Gran % 0.1 Neutrophils % 54.4 Lymphocytes % 37.8 Monocytes % 5.8 Eosinophils % 1.6 Basophils % 0.3 Nucleated RBC % 0.0 Absolute Neutrophils 3.63 Absolute Lymphocytes 2.53 Absolute Monocytes 0.39 Absolute Eosinophils 0.11 Absolute Basophils 0.02 Sodium 140 Potassium 3.9 Chloride 105 Carbon Dioxide 26.8 Anion Gap 8.2 BUN 17 Creatinine 0.8 Estimated GFR/1.73 m2 >= 60.00 Glucose 102 Calcium 8.3 L Magnesium 2.1 Total Bilirubin 0.2 AST 11 L ALT 15 Alkaline Phosphatase 63 Troponin I < 50 Total Protein 6.2 L Albumin 3.2 L Lipase 75 TSH 5.69 H Free T4 0.97 COVID-19 Source Nasopharynx SARS-CoV-2 (PCR) Negative Influenza Type A (PCR) Negative Influenza Type B (PCR) Negative RSV (PCR) Negative 11/19/21 02:55 WBC RBC Hgb Hct MCV MCH MCHC RDW Plt Count MPV Immature Gran % Neutrophils % Lymphocytes % Monocytes % Eosinophils % Basophils % Nucleated RBC % Absolute Neutrophils Absolute Lymphocytes Absolute Monocytes Absolute Eosinophils Absolute Basophils Sodium Potassium Chloride Carbon Dioxide Anion Gap BUN Creatinine Estimated GFR/1.73 m2 Glucose Calcium Magnesium Total Bilirubin AST ALT Alkaline Phosphatase Troponin I < 50 Total Protein Albumin Lipase TSH Free T4 COVID-19 Source SARS-CoV-2 (PCR) Influenza Type A (PCR) Influenza Type B (PCR) RSV (PCR) Last Vital Signs Temp 35.5 C L 11/19/21 03:21 Pulse 63 11/19/21 03:21 Resp 20 11/19/21 03:21 BP 86/49 L 11/19/21 03:21 Pulse Ox 93 11/19/21 03:21 PAWSS Have you Been Recently Intoxicated or Drunk Within the Last 30 days?: No Have you Ever Experienced Previous Episodes of Alcohol Withdrawal?: No Have you ever Experienced Withdrawal Seizures?: No Have you ever Experienced Delirium Tremens(DT)s?: No Have you ever undergone Alcohol Rehabilitation Treatment (i.e, inpt ot outpatient treatment programs)?: No Have you ever Experienced Blackouts?: No Have you ever Combined Alcohol with other Downers within the last 90 days?: No Have you ever Combined Alcohol with any other Substance of Abuse during the last 90 days?: No Positive Blood Alcohol level on Presentation? [PCS.BAL]: No Evidence of Increased Autonomic Activity (i.e. HR>120, tremor, sweating, agitation, nausea)?: No Result: 0
[2021-11-19] MEDS: LORazepam 0.5 MG TAB PO (05:48)
[2021-11-19 06:56] LABS: Abs Immature Grans 0.02 10^3/uL (0.0-0.06); Absolute Basophil Count 0.02 10^3/uL (0.0-0.2); Absolute Eosinophil Count 0.04 10^3/uL (0.0-0.7); Absolute Lymphocyte Count 1.43 10^3/uL (1.2-3.4); Absolute Monocyte Count 0.39 10^3/uL (0.1-0.8); Absolute Neutrophil Count 4.91 10^3/uL (1.2-6.7); Basophils % 0.3; Eosinophils % 0.6; HCT 36.2 % (36.0-46.0); HGB 11.7 g/dL (11.2-15.7); Immature Grans % 0.3; MCH 29.8 pg (27.0-33.0); MCHC 32.3 % (32.0-36.0); MCV 92 fL (80-95); MPV 10.7 fL (8.0-11.0); Monocytes % 5.7; Neutrophils % 72.1; Platelet Count 191 10^3/uL (130-400); RBC 3.92 10^6/uL (3.93-5.22); RDW 13.6 % (11.7-14.6); RDW-SD 45.9 fL; WBC 6.81 10^3/uL (4.4-10.8)
[2021-11-19 07:13] LABS: ALT 15 U/L (14-59); AST 15 U/L (15-37); Albumin 2.9 g/dL (3.4-5.0); Alkaline Phosphatase 54 U/L (46-116); Anion Gap 5.8 mmol/L (3-11); BUN 13 mg/dL (7-18); Bilirubin, Total 0.5 mg/dL (0.2-1.0); CO2 25.2 mmol/L (21.0-32.0); CREATININE 0.7 mg/dL (0.55-1.02); Calcium 8.1 mg/dL (8.5-10.1); Chloride 108 mmol/L (98-107); Glucose 119 mg/dL (74-106); Potassium 4.3 mmol/L (3.5-5.1); Sodium 139 mmol/L (136-145); Total Protein 5.5 g/dL (6.4-8.2)
[2021-11-19] MEDS: Ipratropium/Albuterol 4 GM 120 PUFF INH IH ×2 (09:03→13:08)
[2021-11-19] MEDS: Loratidine 10 MG TAB PO (09:22)
[2021-11-19] MEDS: Enoxaparin 40 MG/0.4 ML SYR SC (09:22)
[2021-11-19 10:00] LABS: Bilirubin Negative (Negative); Blood Negative (Negative); Clarity Clear (Clear); Glucose Negative (Negative); Ketones Negative (Negative); Leukocyte Esterase Negative (Negative); Nitrite Negative (Negative); Specific Gravity 1.015 (1.005-1.025); Urobilinogen 0.2 EU/dL (Up TO 0.2); pH 6.5 (5-8)
--- NOTE | 2021-11-19 13:14 | W.PM.DS.N ---
Date of service: 11/19/21 Time of Service: 13:14 DS: Diagnosis Discharge Diagnosis (1) Dehydration: Status: Acute (2) Syncope: Status: Chronic (3) Enterocolitis: Status: Acute (4) COPD suggested by initial evaluation: Status: Chronic Discharge Plan Disposition Patient Disposition: HOME Condition: Stable Discharge Details Reason For Visit: Dehydration,Enterocolitis Admit Date/Time: 11/19/21 02:08 Admit Provider: Lito Pagan Attending Provider: Lito Pagan Primary Care Provider: Amparo Brewer Hospital Course Hospital Course: This is a 71-year-old female patient with past medical history of anxiety, hyperlipidemia, osteoporosis current smoker, presented to the [facility] ED with complaint of a sudden onset of GI symptoms with nausea, vomiting, diarrhea, and syncope.Her labs were unremarkable. Her head CT was unrevealing and CT of the abdomen did reveal enterocolitis.?EKG normal. No chest pain, shortness of breath or fever. She reports, earlier in the day being outside mowing the lawn, which is relatively a new chore for her (her recently passed and she has taken over a lot of household duties that are more physical than she is used to. She states she didn't drink much water, if any, all day. The outdoor temperature was in the 80's. After mowing, she admits to having 2 alcoholic mixed drinks, and later ate some lobster, followed some time later with GI symptoms and syncope. She received IV fluids and was admitted to the medical surgical floor for observation. She was was placed on bowel rest and IV hydration and this did help her feel better.?She had no diarrhea over night, no nausea, able to tolerate a full diet. Suscpicion of having a vasovagal episode, however recommended an event monitor. Discussed with Dr Treviño Time spent on discharge and patient care 60 minutes Home Meds and New Rx's Prescriptions: New Inhaler, Assist Devices [Pocket Chamber] 1 ea miscellaneous DIRECTED Qty: 0 0RF ondansetron 4 mg tablet,disintegrating 4 mg PO Q8H PRNQty: 10 0RF Continued potassium chloride 20 mEq tablet extended release 20 meq PO DAILY Qty: 30 1RF Rx Instructions: 5 days of K, then recheck with labs. tumeric 1 cap PO DAILY probiotics 1 tab PO DAILY lorazepam 0.5 mg tablet 0.5 mg PO ONCE Qty: 10 0RF Rx Instructions: Trial for panic episode, monitor and review loratadine 10 mg tablet 10 mg PO DAILY Qty: 30 1RF mirtazapine 7.5 mg tablet 7.5 mg PO QHS Qty: 90 1RF Rx Instructions: Lower dose albuterol sulfate [ProAir HFA] 90 mcg/actuation HFA aerosol inhaler 1 puff inhalation Q6H PRN (Reason: shortness of breath or wheezing) Qty: 8.5 1RF Rx Instructions: Trial 4/day over the wkd; then 2/day x 1 week.. Combivent Respimat 20-100 mcg/actuation mist 1 puff inhalation Q6H Qty: 4 1RF Rx Instructions: Trial for cough/congestion (use INSTEAD of albuterol) acetaminophen 325 MG tablet 325 mg PO PRN PRN Discharge Instructions Instructions: Dehydration (DC), Acute Diarrhea (GEN), Hypotension (DC), Near Syncope (DC) Additional Instructions: Hydrate well, avoid alcohol, no excessive exercise until follow up with Dr. Brewer. Consider a cardiac event monitor. Any chest pain, difficulty breathing, recurrence, return to the emergency department. Stand Alone Forms: Nursing Discharge Form Referrals: Amparo Brewer DO [Primary Care Provider] - (please call friday for an appointment 1-2 weeks Consider cardiac event monitor) Activity:: Activity as Tolerated Equipment/Supplies:: No Equipment Needed Diet:: As Tolerated Discharge Orders Discharge Orders: Discharge Order (Routine); Ordered 11/19/21 Ordered By: Lucia Vidal Discharge Data Discharge Date/Time-TO BE ENTERED AT DEPARTURE: 11/19/21 14:57 DS: Summary Time Spent with Patient providing and/or coordinating discharge services: Greater than 30 minutes Status at Discharge Functional status at discharge: independent ambulation Overall status at discharge: patient is back to baseline Mental Status: mental status grossly normal Speech and Movement: speech and movement normal Mood: congruent mood Affect: normal affect Exam Psych Mental Status: mental status grossly normal Speech and Movement: speech and movement normal Mood: congruent mood Affect: normal affect DS: Data Vitals/I&O Vitals and I&O: Vital Signs Temperature 37.0 C 11/19/21 11:58 Temperature Source Tympanic 11/19/21 11:58 Pulse 55 L 11/19/21 13:05 Pulse Rhythm Regular 11/19/21 09:30 Pulse 72 11/19/21 02:45 Respiratory Rate 12 11/19/21 11:58 Respiratory Effort 11/19/21 09:30 Respiratory Depth Normal 11/19/21 09:30 Respiratory Pattern Normal 11/19/21 09:30 Blood Pressure 96/58 L 11/19/21 13:05 Blood Pressure Mean 63 11/19/21 02:45 Pulse Oximetry 95 11/19/21 11:58 Oxygen Delivery Method Room Air 11/19/21 11:58 Oxygen Flow Rate 0 11/19/21 11:58 Pain Level 0 11/19/21 11:58 Intake & Output 11/18/21 11/19/21 11/19/21 23:59 11:59 23:59 Intake Total 1999 Output Total 200 / 200 Balance 1800 / 1800 Weight 56.2 kg Intake: IV 1999 Output: Urine 200 / 200 Other: Urine Color Yellow Urine Appearance Clear Urine Odor None Comment pt voided missed the hat Emesis Description Undigested Food Voiding Methods Toilet Data Completed and Pending Labs on day of discharge: Labs from last 24 hours 11/19/21 11/19/21 11/19/21 09:45 06:45 06:45 WBC 6.81 RBC 3.92 L Hgb 11.7 Hct 36.2 MCV 92 MCH 29.8 MCHC 32.3 RDW 13.6 Plt Count 191 MPV 10.7 Immature Gran % 0.3 Neutrophils % 72.1 Lymphocytes % 21.0 Monocytes % 5.7 Eosinophils % 0.6 Basophils % 0.3 Nucleated RBC % 0.0 Absolute Neutrophils 4.91 Absolute Lymphocytes 1.43 Absolute Monocytes 0.39 Absolute Eosinophils 0.04 Absolute Basophils 0.02 Sodium 139 Potassium 4.3 Chloride 108 H Carbon Dioxide 25.2 Anion Gap 5.8 BUN 13 Creatinine 0.7 Estimated GFR/1.73 m2 >= 60.00 Glucose 119 H Calcium 8.1 L Magnesium Total Bilirubin 0.5 AST 15 ALT 15 Alkaline Phosphatase 54 Troponin I Total Protein 5.5 L Albumin 2.9 L Lipase TSH Free T4 Urine Color Yellow Urine Clarity Clear Urine pH 6.5 Ur Specific [place] 1.015 Urine Protein Negative Urine Ketones Negative Urine Blood Negative Urine Nitrite Negative Urine Bilirubin Negative Urine Urobilinogen 0.2 Ur Leukocyte Esterase Negative Urine Glucose Negative COVID-19 Source SARS-CoV-2 (PCR) Influenza Type A (PCR) Influenza Type B (PCR) RSV (PCR) 11/19/21 11/19/21 11/19/21 02:55 00:41 00:25 WBC 6.69 RBC 4.30 Hgb 13.0 Hct 39.9 MCV 93 MCH 30.2 MCHC 32.6 RDW 13.4 Plt Count 214 MPV 10.8 Immature Gran % 0.1 Neutrophils % 54.4 Lymphocytes % 37.8 Monocytes % 5.8 Eosinophils % 1.6 Basophils % 0.3 Nucleated RBC % 0.0 Absolute Neutrophils 3.63 Absolute Lymphocytes 2.53 Absolute Monocytes 0.39 Absolute Eosinophils 0.11 Absolute Basophils 0.02 Sodium Potassium Chloride Carbon Dioxide Anion Gap BUN Creatinine Estimated GFR/1.73 m2 Glucose Calcium Magnesium Total Bilirubin AST ALT Alkaline Phosphatase Troponin I < 50 Total Protein Albumin Lipase TSH Free T4 Urine Color Urine Clarity Urine pH Ur Specific [place] Urine Protein Urine Ketones Urine Blood Urine Nitrite Urine Bilirubin Urine Urobilinogen Ur Leukocyte Esterase Urine Glucose COVID-19 Source Nasopharynx SARS-CoV-2 (PCR) Negative Influenza Type A (PCR) Negative Influenza Type B (PCR) Negative RSV (PCR) Negative 11/19/21 00:25 WBC RBC Hgb Hct MCV MCH MCHC RDW Plt Count MPV Immature Gran % Neutrophils % Lymphocytes % Monocytes % Eosinophils % Basophils % Nucleated RBC % Absolute Neutrophils Absolute Lymphocytes Absolute Monocytes Absolute Eosinophils Absolute Basophils Sodium 140 Potassium 3.9 Chloride 105 Carbon Dioxide 26.8 Anion Gap 8.2 BUN 17 Creatinine 0.8 Estimated GFR/1.73 m2 >= 60.00 Glucose 102 Calcium 8.3 L Magnesium 2.1 Total Bilirubin 0.2 AST 11 L ALT 15 Alkaline Phosphatase 63 Troponin I < 50 Total Protein 6.2 L Albumin 3.2 L Lipase 75 TSH 5.69 H Free T4 0.97 Urine Color Urine Clarity Urine pH Ur Specific [place] Urine Protein Urine Ketones Urine Blood Urine Nitrite Urine Bilirubin Urine Urobilinogen Ur Leukocyte Esterase Urine Glucose COVID-19 Source SARS-CoV-2 (PCR) Influenza Type A (PCR) Influenza Type B (PCR) RSV (PCR) PFSH All Active Problems Syncope (Chronic) Enterocolitis (Acute) Dehydration (Acute) Sialolith (Acute) Clinical Dx, but deeper than usual ppt.. monitoring w/ possible ENT ref. Cataracts, bilateral (Acute) per pt report [ ] Edel notes Cataract (Chronic) Eyesight diminished (Acute) COPD suggested by initial evaluation (Chronic) URI (upper respiratory infection) (Acute) Sleep difficulties (Acute) Half dose Mirtazepam has helped, agree to continue (10/2019) IBS (irritable bowel syndrome) (Chronic) Improved with smaller meals, low sugar diet. 04/2018 Vitamin D deficiency, unspecified (Acute 09/17/11) Tobacco use disorder (Acute 04/10/15) Osteoporosis (Acute 09/17/11) Was on Fosamax for ~9 months but did not tolerate (bowel issues & rash) Microscopic colitis (Acute 06/07/14) Menopausal flushing (Acute 02/17/13) Zoloft Hyperlipidemia, unspecified (Acute 04/10/15) 03/2016 labwork: 10-year ASCVD risk = ~9.2% --> pt already on moderate intensity statin therapy, continue Family history of colon cancer (Acute 02/10/13) Anxiety (Acute 02/04/12) Advance directive in chart (Acute 04/17/16) Medical History Anxiety Hyperlipidemia Microscopic colitis Osteoporosis Postmenopausal Surgical History Colonoscopy - IV Sedation (06/06/14) Dr Quintanilla Tubal Ligation, 1980s Family History Father , colon CA at age 50. Colon cancer Brother Colon cancer diagnosed 2012 Social History Smoking/Tobacco Use Status: Current every day Tobacco Type: cigarettes Smoking packs per day: 0.75 Smoking cigarettes per day: 15.0 Smoking risk assessment performed?: Yes Alcohol Intake: never Drug use: Never Substance use type: does not use Household members: spouse Housing: house Number of Children: 2 current occupation: last model department supervisor [employer] Current gender identity: female What is your relationship status?: Panel score (0-1 are the most socially isolated patients): 1 What type of physical activity do you participate in: none Seatbelt use: always Drive intox or ride w/intox otr company driver: No Working smoke detector in home: Yes Carbon monox detector in home: Yes Do you feel safe at home: Yes Do you feel safe in your relationship?: Yes
== END 2021-11-19 14:57 | disposition home or self-care (01) ==
LOC: ER 03:10 → MS 05:36
PROVIDERS: Admitting Provider Family Medicine; Emergency Provider Emergency Medicine; PCP Student in an Organized Health Care Education/Training Program; Visit Provider Family Medicine
DX: K52.9 Noninfective gastroenteritis and colitis, unspecified (principal); E86.0 Dehydration; R55 Syncope and collapse; I71.4 Abdominal aortic aneurysm, without rupture; R53.1 Weakness; F17.210 Nicotine dependence, cigarettes, uncomplicated; M81.0 Age-related osteoporosis without current pathological fracture; E78.5 Hyperlipidemia, unspecified; Z80.0 Family history of malignant neoplasm of digestive organs; F41.9 Anxiety disorder, unspecified; Z79.899 Other long term (current) drug therapy; W19.XXXA Unspecified fall, initial encounter; Z20.822 Contact with and (suspected) exposure to COVID-19
CPT/HCPCS: 36415; 80053; 83690; 87637; 93005; 94640; 96360; 96361; 96372; 96374; 99285; J1650; 70450; 71045; 74176; 81003; 83735; 84439; 84443; 84484; 85025; 93010; 99235; G0378; J2405; J3490

== ENCOUNTER 2021-12-05 01:29 | Outpatient (CLI) | payer MEDICARE, BC, SELFPAY ==
[2021-12-05 08:19] LABS: Abs Immature Grans 0.02 10^3/uL (0.0-0.06); Absolute Basophil Count 0.03 10^3/uL (0.0-0.2); Absolute Eosinophil Count 0.09 10^3/uL (0.0-0.7); Absolute Lymphocyte Count 1.92 10^3/uL (1.2-3.4); Absolute Monocyte Count 0.39 10^3/uL (0.1-0.8); Absolute Neutrophil Count 3.08 10^3/uL (1.2-6.7); Basophils % 0.5; Eosinophils % 1.6; HCT 44.8 % (36.0-46.0); HGB 14.4 g/dL (11.2-15.7); Immature Grans % 0.4; Lymphocytes % 34.7; MCH 29.7 pg (27.0-33.0); MCHC 32.1 % (32.0-36.0); MCV 92 fL (80-95); MPV 10.7 fL (8.0-11.0); Monocytes % 7.1; Neutrophils % 55.7; Platelet Count 241 10^3/uL (130-400); RBC 4.85 10^6/uL (3.93-5.22); RDW 13.3 % (11.7-14.6); RDW-SD 45.9 fL; WBC 5.53 10^3/uL (4.4-10.8)
[2021-12-05 09:08] LABS: ALT 19 U/L (14-59); AST 14 U/L (15-37); Albumin 3.7 g/dL (3.4-5.0); Alkaline Phosphatase 65 U/L (46-116); Anion Gap 8.3 mmol/L (3-11); BUN 16 mg/dL (7-18); Bilirubin, Total 0.6 mg/dL (0.2-1.0); CO2 28.7 mmol/L (21.0-32.0); CREATININE 0.8 mg/dL (0.55-1.02); Calcium 8.9 mg/dL (8.5-10.1); Calculated LDL 177 mg/dL (<100); Chloride 103 mmol/L (98-107); Cholesterol 270 mg/dL (<200); Glucose 94 mg/dL (74-106); HDL Cholesterol 65 mg/dL (40-60); Magnesium 1.9 mg/dL (1.8-2.4); Potassium 4.2 mmol/L (3.5-5.1); Sodium 140 mmol/L (136-145); TSH (W/Ref FT4) 1.83 uIU/mL (0.36-3.74); Triglyceride 142 mg/dL (<150)
[2021-12-06 05:25] LABS: Vitamin D 25 Total 17.7 ng/mL (30-100)
== END 2021-12-05 01:30 | disposition home or self-care (01) ==
LOC: LBO 01:30
PROVIDERS: PCP Student in an Organized Health Care Education/Training Program; Visit Provider Student in an Organized Health Care Education/Training Program
DX: E78.5 Hyperlipidemia, unspecified (principal); M81.0 Age-related osteoporosis without current pathological fracture; E46 Unspecified protein-calorie malnutrition; E86.0 Dehydration; J30.2 Other seasonal allergic rhinitis; K58.9 Irritable bowel syndrome, unspecified; Z86.39 Personal history of other endocrine, nutritional and metabolic disease
CPT/HCPCS: 36415; 80053; 80061; 82306; 83735; 84443; 85025

== ENCOUNTER 2022-01-28 04:10 | Outpatient (CLI) | payer MEDICARE, BC, SELFPAY ==
[2022-01-28] MEDS: Albuterol HFA 18 GM 200 PUFF INH IH (11:21)
[2022-01-28] MEDS: Inhaler, Assist Device 1 EACH MC (11:22)
--- NOTE | 2022-02-08 16:48 | W.PFT ---
Date of service: 01/28/22 Time of Service: 10:04 Pulmonary Function Test Result Requesting Provider Amparo Brewer Indications: ADHIKARI Interpretation Spirometry: There is moderate airflow limitation. There is no significant bronchodilator response. There is inspiratory loop blunting. Impression Moderate airflow obstruction. Inspiratory loop blunting in the correct clinical context could represent vocal cord dysfunction. Clinical Correlation therefore is recommended.
== END 2022-01-28 04:11 | disposition home or self-care (01) ==
LOC: RT 04:11
PROVIDERS: PCP Student in an Organized Health Care Education/Training Program; Visit Provider Student in an Organized Health Care Education/Training Program
DX: J44.9 Chronic obstructive pulmonary disease, unspecified (principal); F17.210 Nicotine dependence, cigarettes, uncomplicated
CPT/HCPCS: 94060

== ENCOUNTER → 2022-02-19 12:55 | Outpatient (BNVA) | payer MEDICARE, BC, SELFPAY | PROVIDERS: PCP Student in an Organized Health Care Education/Training Program; Referring Provider Student in an Organized Health Care Education/Training Program; Visit Provider Surgery | DX: Z80.0 Family history of malignant neoplasm of digestive organs (principal); R14.0 Abdominal distension (gaseous); Z12.11 Encounter for screening for malignant neoplasm of colon ==

== ENCOUNTER 2022-02-25 09:45 | Day surgery (SDC) | payer MEDICARE, BC, SELFPAY ==
--- NOTE | 2022-02-25 08:25 | ENDO_ITS ---
Date of service: 02/25/22 Time of Service: 12:25 Endoscopy Report DATE OF PROCEDURE: 02/25/22 PRE-OP DIAGNOSIS: Bloating and screening colonscopy POST-OP DIAGNOSIS: other (gastritis and gastric ulcer, esophagitis) PROCEDURE: 1. EGD with biopsies 2. Colonoscopy SURGEON: Savannah Quintanilla ANESTHESIA TYPE: General:No Airway ESTIMATED BLOOD LOSS: 3 PATHOLOGY: other (bx of duodenum, gastric ulcer, antrum and GE junction) COMPLICATIONS: None DISPOSITION: same day INDICATIONS: The patient? is a pleasant ? 71-year-old female who is here to discuss another screening colonoscopy.? Her last colonoscopy was in 2014 and was normal.? She denies any changes in bowel habits, melena, hematochezia, unintentional weight loss. She has a family history of colon cancer in her father at age 50 and her brother at age 64.? The procedure and risks were discussed.? The prep was reviewed in detail.? Risks, benefits and complications have been reviewed. Complications include but are not limited to bleeding, pain, perforation, missed small lesion/polyp, sore throat, aspiration and adverse reaction to the medications. Questions were entertained and answered to their satisfaction and they wished to proceed. No guarantees were given or implied. Charley has been having some increase in bloating especially towards the end of the day.? She has never had an upper endoscopy and it sounds like she might be dealing with some gastritis.? Doing an upper endoscopy at the time of her colonoscopy to look for gastritis but also to do some biopsies of her small intestine to rule out celiac.? Risks, benefits and complications have been reviewed. Complications include but are not limited to bleeding, pain, perforation, sore throat, aspiration, and adverse reaction to the medications.? Questions were entertained and answered to their satisfaction and they wished to proceed. No guarantees were given or implied. Proceed with EGD at time of colonoscopy PREP: Miralax/Dulcolax PROCEDURE START TIME: 11:52 PROCEDURE END TIME: 12:15 COLONOSCOPY RETRACTION TIME: 6 minutes FINDINGS: small ulcer of the pylorus inflammation of the stomach and esophagus PROCEDURE DESCRIPTION: After informed consent was obtained the patient was take to the procedure room a nd placed in a supine position. Monitors were applied and a time out was done. The patients name, date of , procedure type, allergies to medications and metal in their body was reviewed. A bite block was placed and the patient was sedated. Once sedated and comfortable the gastroscope was advanced through the oropharynx which was grossly normal into the esophagus. The proximal and mid-e sophagus were normal. In the distal esophagus there was inflammation noted. The scope was advanced into the stomach and through the pylorus into the 3rd portion of the duodenum. The duodenum was noted to be normal. Biopsies were done of the duodenum. The scope was retracted back into the stomach. There was moderate inflammation noted in the antrum. Biopsies were done to rule out H. pylori. There was one ulcer. The scope was retro-flexed. The cardia and fundus were noted to be normal. There was no hiatal hernia noted. The scope was retracted back into the esophagus and biopsies were done of the GE junction to rule out Bhakta's. The Z line was regular. The GE junction was at 40 cm. While the patient was still sedated they were placed in a left decubitous position. A rectal exam was done. External exam was normal. Internal exam revealed a normal sphincter tone and no palpable masses. The scope was then introduced and retro-flexed. No internal hemorrhoids, masses or polyps were identified on retroflexion. The scope was then advanced to the cecum without difficulty. The ileocecal valve and appendiceal orifice were identified. The prep was good. The scope was then slowly retracted over 6 minutes back into the rectum. There were no Polyps. There was no diverticulosis noted. The scope was removed and the patient was woken up and taken back to Same day surgery in stable condition. The patient tolerated the procedure well and there were no immediate complications. Follow up: 10 years
--- NOTE | 2022-02-25 08:26 | W.PM.DSUDISC ---
Discharge Plan Disposition Patient Disposition: HOME Condition: Good Discharge Details Reason For Visit: colo/egd Attending Provider: Savannah Quintanilla Primary Care Provider: Amparo Brewer Home Meds and New Rx's Prescriptions: New omeprazole 40 mg capsule,delayed release(DR/EC) 40 mg PO DAILY Qty: 30 3RF Continued potassium chloride 20 mEq tablet extended release 20 meq PO DAILY Qty: 30 1RF Rx Instructions: 5 days of K, then recheck with labs. tumeric 1 cap PO DAILY probiotics 1 tab PO DAILY lorazepam 0.5 mg tablet 0.5 mg PO ONCE Qty: 10 0RF Rx Instructions: Trial for panic episode, monitor and review Combivent Respimat 20-100 mcg/actuation mist 1 puff inhalation Q6H Qty: 4 1RF Rx Instructions: Trial for cough/congestion (use INSTEAD of albuterol) mirtazapine 7.5 mg tablet 7.5 mg PO QHS Rx Instructions: Pt take half of a 7.5 mg tab. Lower dose acetaminophen 325 MG tablet 325 mg PO PRN PRN Inhaler, Assist Devices [Pocket Chamber] 1 ea miscellaneous DIRECTED Qty: 0 0RF ondansetron 4 mg tablet,disintegrating 4 mg PO Q8H PRNQty: 10 0RF Discontinued bisacodyl [Dulcolax (bisacodyl)] 5 mg tablet,delayed release (DR/EC) 5 mg PO ONCE Qty: 4 0RF Rx Instructions: Take according to provider's instructions for colonoscopy prep. polyethylene glycol 3350 17 gram/dose powder 17 g PO ONCE Qty: 238 0RF Rx Instructions: To be taken as directed by prescriber's office for colonoscopy prep. Discharge Instructions Instructions: Diet for Stomach Ulcers and Gastritis (ED), Gastritis (DC) Additional Instructions: Findings: Inflammation of the stomach with ulcer inflammation of the esophagus Follow up: 5 years for next colonoscopy Please call if you develop: fevers >101.5 Nausea or Vomiting Abdominal pain that is not transient Rectal bleeding that is more then a tbsp A hard abdomen and inability to pass gas DAY SURGERY UNIT POST ENDOSCOPY INSTRUCTIONS Instructions for everyone who is given Anesthesia: For your safety, please do the following for the next 24 Hours: a. Do not drive or operate dangerous equipment b. Do not drink alcohol beverages or use any recreational drugs for the first 24 hours or while taking pain medications. The medications in your body may have a reaction that can be dangerous. c. Do not make any important decisions or sign any important papers 1. Generally there are no restrictions on your activity after a day or so has gone by, but you may feel a bit fatigued for a few days. 2. After you arrive home you may have a light meal and return to a normal diet as you can tolerate it without feeling sick to your stomach. 3. After surgery, you may feel pain or discomfort. This should be only transient, but if it persists please contact your doctor. 4. If there are any questions regarding the findings of your procedure, please feel free to contact your doctor. 6. If you are unable to contact your doctor with a problem, contact the hospital at [phone]. 7. Continue all your regular medications unless directed otherwise. I understand the above instructions and have no questions. Signature of Patient or Responsible Adult Escort Date/Time Name of Responsible Adult Escort Signature of Nurse Date/Time Activity:: Activity as Tolerated Diet:: low acid Discharge Orders Discharge Orders: Discharge Order (Routine); Ordered 02/25/22 Ordered By: Savannah Quintanilla
[2022-02-25 10:33] VITALS: BP 105/71; PULSE 87; RESP 18; TEMP 36.6; O2SAT 94
[2022-02-25] MEDS: Lactated Ringers 1,000 ML 80 ML IV (10:55)
--- NOTE | 2022-02-25 11:45 | W.ANESPRE ---
General Info Date of Service Date Performed: 02/25/22 Height: 5 ft 4 in Weight: 51.398 kg Body Mass Index (BMI): 19.4 Surgical Procedure: Operation Date: 02/25/22 11:20 Proposed Procedure Side Surgeon p Colonoscopy/Gastroscopy Savannah Quintanilla MD Actual Procedure Side Surgeon p Colonoscopy/Gastroscopy Savannah Quintanilla MD Meds Allergies and Home Medications Allergies Allergy/AdvReac Type Severity Reaction Status Date / Time alendronate sodium AdvReac Intermediate GI Verified 02/19/22 13:07 INTOLERANCE & ARM RASH Home Medication Medication Instructions Recorded acetaminophen 325 mg tablet 325 mg PO PRN PRN 09/25/12 probiotics 1 tab PO DAILY 08/07/18 tumeric 1 cap PO DAILY 08/07/18 potassium chloride 20 mEq 20 meq PO DAILY very low K #30 tabs 11/06/18 tablet,extended release lorazepam 0.5 mg tablet 0.5 mg PO ONCE #10 tabs 11/12/19 ipratropium 20 mcg-albuterol 100 1 puff inhalation Q6H #4 grams 10/05/21 mcg/actuation mist for inhalation (Combivent Respimat) Inhaler, Assist Devices [Pocket 1 ea miscellaneous DIRECTED ##0 11/19/21 Chamber] ondansetron 4 mg disintegrating 4 mg PO Q8H PRN #10 tabs 11/19/21 tablet bisacodyl 5 mg tablet,delayed 5 mg PO ONCE #4 tabs 02/19/22 release (Dulcolax (bisacodyl)) mirtazapine 7.5 mg tablet 7.5 mg PO QHS 02/19/22 polyethylene glycol 3350 17 17 g PO ONCE #238 grams 02/19/22 gram/dose oral powder Current Visit Medications: Current Medications Generic Name Dose Route Start Last Admin Trade Name Freq PRN Reason Stop Dose Admin Hyoscyamine Sulfate 0.125 mg 02/25/22 08:27 Hyoscyamine 0.125 Mg Sl/Oral/Chew SL DIRECTED PRN Ringer's Solution 1,000 mls @ 80 mls/hr 02/25/22 06:00 02/25/22 10:55 IV 03/24/22 23:59 80 mls/hr INFUSION WINNIE Administration IV Miscellaneous Supplies 1 each 02/25/22 06:00 Iv Access IV 03/24/22 23:59 DIRECTED WINNIE Ondansetron HCl 4 mg 02/25/22 08:27 Ondansetron 4 Mg/2 Ml Vial IVP Q4H PRN PRN Nausea / Vomiting Sodium Chloride 0 ml 02/25/22 06:00 Normal Saline Flush 10 Ml Syr IV 03/24/22 23:59 PRN PRN Sodium Chloride 0 ml 02/25/22 06:00 Normal Saline 10 Ml Vial IJ 03/24/22 23:59 DIRECTED PRN Sterile Water 0 ml 02/25/22 06:00 Water,Injection,Sterile 10 Ml Vial IJ 03/24/22 23:59 DIRECTED PRN PFSH Active Problems Active Problems: Problem Status Onset Code Bloating R14.0 Screening for colon cancer Z12.11 Seasonal allergies J30.2 Viral gastritis K29.70 Dehydration E86.0 Sialolith K11.5 Cataracts, bilateral H26.9 Cataract H26.9 Eyesight diminished H54.7 COPD suggested by initial evaluation J44.9 URI (upper respiratory infection) J06.9 Sleep difficulties G47.9 IBS (irritable bowel syndrome) K58.9 Vitamin D deficiency, unspecified 09/17/11 E55.9 Tobacco use disorder 04/10/15 F17.200 Osteoporosis 09/17/11 M81.0 Microscopic colitis 06/07/14 K52.839 Menopausal flushing 02/17/13 N95.1 Hyperlipidemia, unspecified 04/10/15 E78.5 Family history of colon cancer 02/10/13 Z80.0 Anxiety 02/04/12 F41.9 Advance directive in chart 04/17/16 Z78.9 Medical History Medical History (Updated 02/19/22 @ 13:52 by Savannah Quintanilla MD) Anxiety Hyperlipidemia Microscopic colitis Osteoporosis Postmenopausal Surgical History Surgical History Colonoscopy - IV Sedation (06/06/14) Dr Quintanilla Tubal Ligation, 1980s Tobacco Smoking/Tobacco Use Status: Current every day Tobacco Type: cigarettes Smoking packs per day: 0.75 Alcohol Alcohol Intake: never Substance Use Substance use: Never Substance use type: does not use Vital Signs and Lab Results Vital Signs Most Recent Vital Signs in EMR: Most Recent Vital Signs Temp Pulse Resp BP Pulse Ox 36.6 C 87 18 105/71 94 02/25/22 10:33 02/25/22 10:33 02/25/22 10:33 02/25/22 10:33 02/25/22 10:33 Lab Results Blood Type / Crossmatch: No Data to Display Complete Blood Count: No Data to Display Complete Metabolic Panel: No Data to Display Liver Function Panel: No Data to Display Coagulation Panel: No Data to Display Cardiac Panel: No Data to Display Arterial Blood Gas: No Data to Display Venous Blood Gas: No Data to Display Pancreas Panel: No Data to Display Thyroid Panel: No Data to Display Infectious Disease: No Data to Display Blood Cultures: No Data to Display Toxicology Panel: No Data to Display Imaging and Studies Imaging and Studies Study information below may be from another EMR and interpreted by another provider. Please see original notes in EMR for more complete details. EKG Summary: 11/19/2021 Conclusion Sinus rhythm...normal P axis, V-rate 60- 99 Low voltage, extremity and precordial leads...extremity<0.5mV, precordial<1.0mV sinus rhythm, normal axis, normal intervals, non ischemic Pulmonary Function Summary: 01/28/2022 Pulmonary Function Test Result Requesting Provider Amparo Brewer Indications: ADHIKARI Interpretation Spirometry: There is moderate airflow limitation. There is no significant bronchodilator response. There is inspiratory loop blunting. Impression Moderate airflow obstruction. Inspiratory loop blunting in the correct clinical context could represent vocal cord dysfunction. Clinical Correlation therefore is recommended. Anesthesia Assessment and Plan Anesthesia History Personal History: No History of Anesthesia Complications Family History: No Family History of Anesthesia Complications Exercise Tolerance Exercise Tolerance: Metabolic Equivalents>4 Pertinent Negatives Pertinent Negatives: No Symptoms of GERD, No Major Cardiovascular Symptoms or Complaints, No Major Pulmonary Symptoms or Complaints and No History of CVA/TIA Cardiac & Pulmonary Exam Cardiac Exam: Normal S1/S2 Heart Sounds Pulmonary Exam: Clear Bilateral Breath Sounds Implantable Cardiac Device Does patient have a Pacemaker or an ICD?: No Airway Exam Known Difficult Airway: No Mallampati Class: 2 Mouth Opening: Normal (> 3cm) Thyromental Distance: Greater than 3 cm Neck Range of Motion: Full ROM Neck Circumference: Normal Teeth Condition: Normal Dentition ASA Classification ASA Score: ASA 2 Emergency Case?: No NPO Status NPO Status: NPO Clears >2 hours, Solids >8 hours Anesthesia Plan Resuscitation Status: Full Code Anesthesia Technique: General Anesthesia Airway Planned: Natural Airway Monitors Used: Standard Monitors
[2022-02-25 11:46] VITALS: BMI 19.4
--- NOTE | 2022-02-25 11:52 | STOM_PTH ---
PATIENT: Charley Murillo LOC: [facility] U#:[id number] AGE/SX: 71/F ROOM: RE02/25/[address]: Savannah Quintanilla MD : 1950 BED: DIS: 02/25/2022 SPEC #: [id number] RECD: 02/25/22 13:25 STATUS: JOANNA REQ #: [id number] MATY: 02/25/22 11:[address]: Savannah Quintanilla DEPT: Surgical Specimen RECD BY: Winnie Obrien ENTERED: 02/25/22 13:26 SP TYPE: STOMACH OTHR DR: Amparo Brewer DO Tissues: 1 - BIOPSY BOWEL 2 - STOMACH BIOPSY 3 - STOMACH BIOPSY 4 - ESOPHAGUS BIOPSY Procedures: GROSS AND MICRO LEVEL 4 Comments: [id number]
[2022-02-25 12:30] VITALS: BP 119/75; PULSE 63; RESP 16; TEMP 36.3; O2SAT 97
--- NOTE | 2022-02-25 12:32 | W.ANESPOSTOP ---
Postoperative Evaluation Date, Time and Location Date Performed: 02/25/22 Time Performed: 12:32 Patient Location: Day Surgery Unit Vital Signs Most Recent Imported Vital Signs: Most Recent Vital Signs Temp Pulse Resp BP Pulse Ox 36.3 C L 63 16 119/75 97 02/25/22 12:30 02/25/22 12:30 02/25/22 12:30 02/25/22 12:30 02/25/22 12:30 Pain Score Most Recent Pain Score: Most Recent Pain Score Pain Level 0 02/25/22 10:33 Assessment Mental Status: Awake (Alert & Oriented to Patient Baseline) Airway and Respiratory Function: Patent airway with normal (patient baseline) respiratory exam Cardiovascular Function: Hemodynamically Stable Hydration Status: Adequately Hydrated Nausea & Vomiting: No Nausea or Vomiting Pain: Pt. Denies Any Pain Peripheral Nerve Block: Patient did not receive a nerve block
[2022-02-25 12:42] VITALS: BP 120/74; PULSE 61; RESP 16; TEMP 36.6; O2SAT 97
== END 2022-02-25 13:07 | disposition home or self-care (01) ==
LOC: SUR 09:45
PROVIDERS: PCP Student in an Organized Health Care Education/Training Program; Visit Provider Surgery
PROC: (CPT 43239; principal; 2022-02-25 11:15)
DX: Z12.11 Encounter for screening for malignant neoplasm of colon (principal); K20.90 Esophagitis, unspecified without bleeding; K25.9 Gastric ulcer, unspecified as acute or chronic, without hemorrhage or perforation; K29.70 Gastritis, unspecified, without bleeding; Z80.0 Family history of malignant neoplasm of digestive organs; K22.89 Other specified disease of esophagus; K31.89 Other diseases of stomach and duodenum
CPT/HCPCS: 43239; G0105; 88305

== ENCOUNTER → 2022-04-17 02:42 | Outpatient (CLI) | payer MEDICARE, BC, SELFPAY ==
--- NOTE | 2022-04-17 07:15 | DI.CTLCSR_ITS ---
Exam(s) CT CHEST LUNG CANCER SCREEN EXAM: CT CHEST LUNG CANCER SCREEN CLINICAL HISTORY: Screening for lung cancer,current smoker, f17.210. TECHNIQUE: Imaging Protocol: Low Dose Technique CONTRAST MATERIAL: None COMPARISON: CT CHEST - LUNG CANCER SCREENING from 04/29/2016 CR,XR XR CHEST 1V IN DI DEPT from 11/19/2021 FINDINGS: CHEST: LUNGS: There are no new ominous pulmonary nodules. There are no new confluent infiltrates. No pleura l effusions. MEDIASTINUM: There is no obvious hilar nor mediastinal adenopathy. CARDIAC: Heart size is normal. There is no pericardial effusion.Caliber of the thoracic aorta is wit hin normal limits. OTHER: OSSEOUS: No significant osseous lesions.. IMPRESSION: 1. No concerning pulmonary nodules. No infiltrates. No pleural effusions 2. No significant intrathoracic adenopathy. 3. Lung RADS Cat 1 - Negative: No nodules and definitely benign nodules Lung-RADS 1.0 CATEGORIES: Category 0 - Prior chest CT exam(s) being located for comparison. Category 1 - Annual screening in 12 months. No nodules or definitely benign nodules. Category 2 - Annual screening in 12 months. Benign appearance. Nodules with low likelihood of becomin g active cancer. Category 3 - 6-month follow-up. Probably benign. Short-term follow-up suggested. Nodules with low lik elihood of becoming active cancer. Category 4A - 3-month follow-up and CT/PET if >8 mm in size. Suspicious finding. Findings which requi re additional testing. Category 4B - Findings which require additional testing and tissue sampling. Category 4X - Category 3 or 4 nodules with additional features or imaging findings that increases the suspicion of malignancy. Modifier S- Potentially clinically significant findings (non lung cancer) RADIATION DOSE DELIVERED: 85.01mGy.cm Total DLP !Error 1.84mGyCTDIvol DATA REPOSITORY: All CT scans at this facility are submitted to the National Radiology Data Registry (NRDR) Dose Index Registry (DIR) with the [employer] (A[employer]). RADIATION OPTIMIZATION: All CT scans at this facility use at least one of these dose optimization te chniques: automated exposure control; mA and/or kV adjustment per patient size (includes targeted exa ms where dose is matched to clinical indication); or iterative reconstruction.
== END ==
PROVIDERS: PCP Student in an Organized Health Care Education/Training Program; Visit Provider Student in an Organized Health Care Education/Training Program
DX: Z12.2 Encounter for screening for malignant neoplasm of respiratory organs (principal); F17.210 Nicotine dependence, cigarettes, uncomplicated
CPT/HCPCS: 71271

== ENCOUNTER 2022-07-05 00:38 | Outpatient (CLI) | payer MEDICARE, BC, SELFPAY ==
--- NOTE | 2022-07-05 08:00 | DI.MAMMO_ITS ---
Exam(s) MAMMO SCREENING EXAM: MAMMO SCREENING CLINICAL HISTORY: screening,Z12.39 TECHNIQUE: Mammograms were interpreted according to the usual protocol including computer analysis w [employer] CAD system, tomosynthesis and C-view imaging. COMPARISON: 2012 through 2020 FINDINGS: The breasts are composed of scattered fibroglandular densities, Breast Density category B. No suspicious masses or suspicious microcalcifications are seen. No skin thickening or abnormal axillary lymph nodes are seen. There has been no significant change from prior exams. IMPRESSION: BI-RADS Category 1, Negative mammogram Yearly screening mammography is recommended. Breast Density - Category B, scattered fibroglandular densities. A negative radiographic report should not delay biopsy if a dominant or clinically suspicious mass is present. Up to ten percent of cancers are not identified on mammography. A negative report may reinforce clinical impression. Adenosis and dense breasts may obscure an underlying neoplasm. False positive reports average 6 to 10%. Patient will receive a letter notifying them of these results.
--- NOTE | 2022-07-05 13:10 | DI.DEXA_ITS ---
Exam(s) XR DEXA BONE DENSITY W/WO MAXIMUS EXAM: XR DEXA BONE DENSITY W/WO MAXIMUS CLINICAL HISTORY: evaluate bone density,OSTEOPOROSIS,M81.0 TECHNIQUE: Swifto C densitometer analysis of left hip, lumbar spine and left forearm. COMPARISON: 2009 and 2010 FINDINGS: Lateral view of the thoracic and lumbar spine shows no evidence of compression fractures. Bone mineral density measurements of the lumbar spine correspond to a total T-score of -3.5, in the osteoporotic range. This represents a 4.8 percent decrease compared with 2010 and 5.7 percent decrea se compared with 2009. Bone mineral density measurements of the left hip correspond to a total T-score of -3.4. The femora l neck T-score is -3.6, in the osteoporotic range. This represents a 14.9 percent decrease from 201 1 0.5 percent decrease from 2009. The left forearm bone mineral density measurements correspond to a T-score of the distal 3rd of -2.1 , in the osteopenic range. This represents a 6.1 percent decrease compared with 2010 and a 7.2 perce nt decrease compared with 2009.. IMPRESSION: Osteoporosis of the lumbar spine and left hip with decrease compared with prior exams. Osteopenia of the left forearm.
== END 2022-07-05 00:58 ==
LOC: DI 00:38
PROVIDERS: PCP Student in an Organized Health Care Education/Training Program; Visit Provider Student in an Organized Health Care Education/Training Program
DX: M81.0 Age-related osteoporosis without current pathological fracture (principal); Z12.31 Encounter for screening mammogram for malignant neoplasm of breast; Z13.820 Encounter for screening for osteoporosis; M85.88 Other specified disorders of bone density and structure, other site
CPT/HCPCS: 77063; 77067; 77080

== ENCOUNTER 2022-11-29 07:16 | Day surgery (SDC) | payer MEDICARE, BC, SELFPAY ==
[2022-11-29 07:27] VITALS: BP 111/74; PULSE 85; RESP 18; TEMP 36.6; O2SAT 95
[2022-11-29] MEDS: Tropicam./Phenyleph. (1/2.5%) 5 ML BTL OS ×3 (07:42→07:52)
--- NOTE | 2022-11-29 07:50 | W.ANESPRE ---
General Info Date of Service Date Performed: 11/29/22 Height: 5 ft 4 in Weight: 52.617 kg Body Mass Index (BMI): 19.9 Surgical Procedure: Operation Date: 11/29/22 09:10 Proposed Procedure Side Surgeon p Cataract Extraction with IOL Implant Left Gino Walters MD Actual Procedure Side Surgeon p Cataract Extraction with IOL Implant Left Gino Walters MD Pre-Op Diagnosis Post-Op Diagnosis CATARACT OS CATARACT OS Meds Allergies and Home Medications Allergies Allergy/AdvReac Type Severity Reaction Status Date / Time alendronate sodium AdvReac Intermediate GI Verified 11/29/22 08:00 INTOLERANCE & ARM RASH Home Medication Medication Instructions Recorded acetaminophen 325 mg tablet 325 mg PO PRN PRN 09/25/12 probiotics 1 tab PO DAILY 08/07/18 tumeric 1 cap PO DAILY 08/07/18 potassium chloride 20 mEq 20 meq PO DAILY very low K #30 tabs 11/06/18 tablet,extended release ipratropium 20 mcg-albuterol 100 1 puff inhalation Q6H #4 grams 10/05/21 mcg/actuation mist for inhalation (Combivent Respimat) Inhaler, Assist Devices [Pocket 1 ea miscellaneous DIRECTED ##0 11/19/21 Chamber] ondansetron 4 mg disintegrating 4 mg PO Q8H PRN #10 tabs 11/19/21 tablet mirtazapine 7.5 mg tablet 7.5 mg PO QHS #90 tabs 05/07/22 sucralfate 1 gram tablet 1 g PO QAC #20 tabs 05/09/22 famotidine 40 mg tablet 40 mg PO BID #180 tabs 11/05/22 cholecalciferol (vitamin D3) 50 50 mcg PO DAILY 11/22/22 mcg (2,000 unit) capsule lorazepam 0.5 mg tablet (Ativan) 0.5 mg sublingual DIRECTED 11/28/22 Current Visit Medications: Current Medications Generic Name Dose Route Start Last Admin Trade Name Freq PRN Reason Stop Dose Admin Acetaminophen 1,000 mg 11/29/22 06:00 Acetaminophen 500 Mg Tab PO 12/29/22 05:59 Q4H PRN PRN Balanced Salt Solution 500 ml 11/29/22 06:00 Balanced Salt Soln.-Plus 500 Ml Bag OP 12/29/22 05:59 DIRECTED [facility] Miscellaneous Medication 0 ml 11/29/22 06:00 Prednisolone 1%, Moxifloxacin 0.5%, Nepafenac 0.1% 5ml Btl OS 12/29/22 05:59 DIRECTED [facility] Miscellaneous Medication 0 ml 11/29/22 06:00 Tropicam./Phenyleph. (1/2.5%) 5 Ml Btl OS 12/29/22 05:59 DIRECTED [facility] Tetracaine HCl 0 ml 11/29/22 06:00 Tetracaine 0.5% 4 Ml Btl OS 12/29/22 05:59 DIRECTED [facility] PFSH Active Problems Active Problems: Problem Status Onset Code Nuclear age-related cataract, left eye H25.12 Skin rash R21 Dental anomaly K00.[address] lung screening R91.8 COPD (chronic obstructive pulmonary disease) J44.9 Bloating R14.0 Screening for colon cancer Z12.11 Seasonal allergies J30.2 Viral gastritis K29.70 Dehydration E86.0 Sialolith K11.5 Cataracts, bilateral H26.9 Eyesight diminished H54.7 COPD suggested by initial evaluation J44.9 URI (upper respiratory infection) J06.9 Sleep difficulties G47.9 IBS (irritable bowel syndrome) K58.9 Vitamin D deficiency, unspecified 09/17/11 E55.9 Tobacco use disorder 04/10/15 F17.200 Osteoporosis 09/17/11 M81.0 Microscopic colitis 06/07/14 K52.839 Menopausal flushing 02/17/13 N95.1 Hyperlipidemia, unspecified 04/10/15 E78.5 Family history of colon cancer 02/10/13 Z80.0 Anxiety 02/04/12 F41.9 Advance directive in chart 04/17/16 Z78.9 Medical History Medical History Anxiety Hyperlipidemia Microscopic colitis Osteoporosis Postmenopausal Surgical History Surgical History Colonoscopy - IV Sedation (06/06/14) Dr Quintanilla Tubal Ligation, 1980s Tobacco Smoking/Tobacco Use Status: Current every day Tobacco Type: cigarettes Smoking packs per day: 0.75 Alcohol Alcohol Intake: never Substance Use Substance use: Never Substance use type: does not use Vital Signs and Lab Results Vital Signs Most Recent Vital Signs in EMR: Temp Pulse Resp BP Pulse Ox 36.6 C 85 18 111/74 95 11/29/22 07:27 11/29/22 07:27 11/29/22 07:27 11/29/22 07:27 11/29/22 07:27 Lab Results Blood Type / Crossmatch: No Data to Display Complete Blood Count: No Data to Display Complete Metabolic Panel: No Data to Display Liver Function Panel: No Data to Display Coagulation Panel: No Data to Display Cardiac Panel: No Data to Display Arterial Blood Gas: No Data to Display Venous Blood Gas: No Data to Display Pancreas Panel: No Data to Display Thyroid Panel: No Data to Display Infectious Disease: No Data to Display Blood Cultures: No Data to Display Toxicology Panel: No Data to Display Imaging and Studies Imaging and Studies Study information below may be from another EMR and interpreted by another provider. Please see original notes in EMR for more complete details. EKG Summary: 11/19/2021 Conclusion Sinus rhythm...normal P axis, V-rate 60- 99 Low voltage, extremity and precordial leads...extremity<0.5mV, precordial<1.0mV sinus rhythm, normal axis, normal intervals, non ischemic Pulmonary Function Summary: 01/28/2022 Pulmonary Function Test Result Requesting Provider Amparo Brewer Indications: ADHIKARI Interpretation Spirometry: There is moderate airflow limitation. There is no significant bronchodilator response. There is inspiratory loop blunting. Impression Moderate airflow obstruction. Inspiratory loop blunting in the correct clinical context could represent vocal cord dysfunction. Clinical Correlation therefore is recommended. Anesthesia Assessment and Plan Anesthesia History Personal History: No History of Anesthesia Complications Family History: No Family History of Anesthesia Complications Exercise Tolerance Exercise Tolerance: Metabolic Equivalents>4 Pertinent Negatives Pertinent Negatives: No Major Cardiovascular Symptoms or Complaints and No History of CVA/TIA Cardiac & Pulmonary Exam Cardiac Exam: Normal S1/S2 Heart Sounds Pulmonary Exam: Clear Bilateral Breath Sounds Cardiac and Pulmonary Comment:: Used inhaler this am, breathing is at patient's baseline Implantable Cardiac Device Does patient have a Pacemaker or an ICD?: No Airway Exam Known Difficult Airway: No Mallampati Class: 2 Mouth Opening: Normal (> 3cm) Thyromental Distance: Greater than 3 cm Neck Range of Motion: Full ROM Neck Circumference: Normal Teeth Condition: Normal Dentition ASA Classification ASA Score: ASA 2 Emergency Case?: No NPO Status NPO Status: NPO Clears >2 hours, Solids >8 hours Anesthesia Plan Resuscitation Status: Full Code Anesthesia Technique: MAC Anesthesia Airway Planned: Natural Airway Monitors Used: Standard Monitors
[2022-11-29 08:23] VITALS: BMI 19.9
[2022-11-29] MEDS: Tetracaine 0.5% 4 ML BTL OS (09:09)
[2022-11-29] MEDS: Povidone-Iodine Ophth 30 ML BTL ×2 (09:09→09:29)
[2022-11-29] MEDS: Balanced Salt Soln.-PLUS 500 ML BAG OP (09:11)
[2022-11-29] MEDS: Duovisc Viscoelastic System EACH 1 EACH (09:11)
[2022-11-29] MEDS: Phenylephrine/Lidocaine (15/10) MG/ML 1 ML VIAL (09:12)
[2022-11-29] MEDS: Lidocaine 1% Pres-Free 5 ML VIAL (09:13)
--- NOTE | 2022-11-29 09:34 | W.PM.DSUDISC ---
Date of service: 11/29/22 Time of Service: 09:34 Discharge Plan Disposition Patient Disposition: Home Discharge Details Attending Provider: Gino Walters Primary Care Provider: Amparo Brewer Home Meds and New Rx's Prescriptions: No Action potassium chloride 20 mEq tablet extended release 20 meq PO DAILY Qty: 30 1RF Rx Instructions: 5 days of K, then recheck with labs. sucralfate 1 gram tablet 1 g PO QAC Qty: 20 1RF Rx Instructions: Trial for gastritis; Make into SLURRY tumeric 1 cap PO DAILY probiotics 1 tab PO DAILY Combivent Respimat 20-100 mcg/actuation mist 1 puff inhalation Q6H Qty: 4 1RF Rx Instructions: Trial for cough/congestion (use INSTEAD of albuterol) cholecalciferol (vitamin D3) 50 mcg (2,000 unit) capsule 50 mcg PO DAILY acetaminophen 325 MG tablet 325 mg PO PRN PRN mirtazapine 7.5 mg tablet 7.5 mg PO QHS Qty: 90 1RF Rx Instructions: Continue; may take half PRN change in sleep. famotidine 40 mg tablet 40 mg PO BID Qty: 180 3RF Rx Instructions: Continue for gastritis, due to possible rxn to PPI Inhaler, Assist Devices [Pocket Chamber] 1 ea miscellaneous DIRECTED Qty: 0 0RF ondansetron 4 mg tablet,disintegrating 4 mg PO Q8H PRNQty: 10 0RF lorazepam [Ativan] 0.5 mg Tablet 0.5 mg sublingual DIRECTED Discharge Instructions Stand Alone Forms: Post-op Topical CataractCandi (DSU) Discharge Orders Discharge Orders: Discharge Order (Routine); Ordered 11/29/22 Ordered By: Gino Walters DS: Diagnosis Discharge Diagnosis (1) Nuclear age-related cataract, left eye: Status: Resolved
[2022-11-29 09:35] VITALS: BP 111/73; PULSE 68; RESP 16; TEMP 36.5; O2SAT 97
--- NOTE | 2022-11-29 09:36 | ROE_ITS ---
Date of service: 11/29/22 Time of Service: 09:36 Operative Note Operative Note DATE OF PROCEDURE: 11/29/22 PRE-OP DIAGNOSIS: Nuclear cataract, left eye POST-OP DIAGNOSIS: same PROCEDURE: Cataract extraction using phacoemulsification with intraocular lens implant, left eye SURGEON: Gino Walters ANESTHESIA TYPE: Local By Surgeon and MAC Refer to Anesthesia Record PATHOLOGY: none sent COMPLICATIONS: None Patient was transported to: same day Patient's condition: stable Implants: Alfred Clareon [id number] Indications: Progressive decreased vision due to cataract, left eye Procedure Description: CATARACT SURGERY OPERATIVE REPORT PREOPERATIVE DIAGNOSIS: Nuclear cataract, left eye POSTOPERATIVE DIAGNOSIS: Same OPERATION: Cataract extraction using phacoemulsification with posterior chamber intraocular lens implant, left eye. IOL: IOL Sales Service Professional/Model: Alfred Clareon [id number] IOL Power: + 17.5 diopters IOL Serial Number: [id number] Optic Diameter: 6.0mm Haptic/Overall Diameter: 13.0mm PHACO INFO: [employer] [place] [employer] Vision System with OZil and Active Fluidics Cumulative Dispersed Energy (CDE): 22.41 seconds SURGEON: Gino Walters MD, ANDER ANESTHESIA: Monitored Anesthesia Care (MAC), with local sub-tenon's anesthetic infiltration COMPLICATIONS: None SPECIMENS: None INDICATIONS FOR PROCEDURE: The patient is a 72-year-old lady with history of diminished visual acuity in her left eye secondary to the development of dense nuclear cataract. She is significantly symptomatic that she desires cataract surgery attempt to improve and maximize her vision. The option of cataract surgery was offered to the patient and she wished to proceed. See office notes for detailed information. PROCEDURE: The correct surgical eye was identified and marked as the left eye and the pupil was dilated in the preoperative area using mydriatics and cycloplegics. The dilated pupil size was 6.0 mm. Oral sedation was administered in the form of an Imprimis MKO Melt (midazolam 3mg/ketamine 25mg/ondansetron 2mg).. The patient was brought to the operating room where cardiopulmonary monitoring was instituted and surgical time-out was performed, confirming the correct operative eye and IOL power. Topical anesthesia was administered and ophthalmic povidone-iodine 5% was instilled into the conjunctival fornices. The giles-ocular area was prepped with Betadine 10% solution and draped in the usual sterile fashion for intraocular surgery, including an aperture drape. A Tegaderm transparent film dressing was cut in half and used to cover the lashes and lid margins. Care was taken to sequester the lashes and lid margins under the Tegaderm dressing. A lid speculum was placed between the lids of the operative eye and the Alfred LuxOR Revalia operating microscope was maneuvered into position. Jaida scissors were then used to make a conjunctival buttonhole approximately 6mm posterior to the limbus in the inferonasal quadrant. Blunt dissection was carried out to expose bare sclera, and a blunt-tipped sub-tenon?s anesthesia cannula was introduced and passed posteriorly along the globe where non- preserved plain lidocaine was injected into posterior sub-Tenon?s space. A sideport knife was used to make a paracentesis port. Intraocular phenylephrine/lidocaine was injected into the anterior chamber. The anterior chamber was then filled with viscoelastic. A keratome knife was used construct a two-plane clear corneal tunnel extending 2.0mm into clear cornea. A flap was raised on the anterior capsule and capsulorhexis forceps were used to complete a continuous curvilinear capsulorhexis of 5.0 mm. Balanced salt solution was then used to perform cortical cleaving hydrodissection and nuclear hydrodelineation until the lens could be freely rotated within the capsular bag. The lens nucleus was then disassembled and removed within the capsular bag and iris plane using phacoemulsification. Residual cortical material was removed using the irrigation/aspiration handpiece. The posterior capsule was carefully polished to remove as much residual lens epithelial cells as safely possible. The capsular bag was then inflated and the anterior chamber deepened with viscoelastic. The lens implant described above was inserted into the capsular bag using the Alfred Autonome Injector. A Kuglen hook was used to dial the IOL into position. Residual viscoelastic was then removed first from posterior to the IOL, then from the anterior chamber using the I/A handpiece. The lens implant was noted to center nicely within the capsular bag. The incisions were stromally hydrated, and the anterior chamber was reformed using BSS. Then 0.5cc of moxifloxacin 1.0mg/ml were injected into the capsular bag and anterior chamber. The incisions were checked with a Weck spear and found to be secure. Several drops of ophthalmic povidone-iodine 5% were then applied to the eye followed by two drops of Imprimis combination prednisolone/moxifloxacin/nepafenac solution. The drapes were removed and a clear plastic protective eye shield was placed over the eye. The patient was then returned to Same Day Surgery in stable condition.
--- NOTE | 2022-11-29 09:50 | W.ANESPOSTOP ---
Postoperative Evaluation Date, Time and Location Date Performed: 11/29/22 Time Performed: 09:42 Patient Location: Day Surgery Unit Vital Signs Most Recent Imported Vital Signs: Most Recent Vital Signs Temp Pulse Resp BP Pulse Ox 36.5 C 68 16 111/73 97 11/29/22 09:35 11/29/22 09:35 11/29/22 09:35 11/29/22 09:35 11/29/22 09:35 Pain Score Most Recent Pain Score: Most Recent Pain Score Pain Level 0 11/29/22 09:35 Assessment Mental Status: Awake (Alert & Oriented to Patient Baseline) Airway and Respiratory Function: Patent airway with normal (patient baseline) respiratory exam Cardiovascular Function: Hemodynamically Stable Hydration Status: Adequately Hydrated Nausea & Vomiting: No Nausea or Vomiting Pain: Pt. Denies Any Pain Peripheral Nerve Block: Patient did not receive a nerve block
[2022-11-29 09:55] VITALS: BP 100/76; PULSE 68; RESP 18; TEMP 36; O2SAT 97
== END 2022-11-29 10:09 | disposition home or self-care (01) ==
LOC: SUR 07:17
PROVIDERS: PCP Student in an Organized Health Care Education/Training Program; Visit Provider Ophthalmology
PROC: (CPT 66984; principal; 2022-11-29 09:00)
DX: H25.12 Age-related nuclear cataract, left eye (principal); J44.9 Chronic obstructive pulmonary disease, unspecified; F17.200 Nicotine dependence, unspecified, uncomplicated; F41.9 Anxiety disorder, unspecified
CPT/HCPCS: 66984; V2632

== ENCOUNTER 2022-12-13 07:20 | Day surgery (SDC) | payer MEDICARE, BC, SELFPAY ==
[2022-12-13] MEDS: Tropicam./Phenyleph. (1/2.5%) 5 ML BTL OD ×3 (07:40→07:54)
[2022-12-13 07:41] VITALS: BP 108/74; PULSE 82; RESP 16; TEMP 35.9; O2SAT 95
--- NOTE | 2022-12-13 07:56 | ANES.PREOP_ITS ---
General Info Date of Service Date Performed: 12/13/22 Height: 5 ft 4 in Weight: 56.617 kg Body Mass Index (BMI): 21.4 Surgical Procedure: Operation Date: 12/13/22 09:10 Proposed Procedure Side Surgeon p Cataract Extraction with IOL Implant Right Gino Walters MD Meds Allergies and Home Medications Allergies Allergy/AdvReac Type Severity Reaction Status Date / Time alendronate sodium AdvReac Intermediate GI Verified 12/13/22 07:37 INTOLERANCE & ARM RASH Home Medication Medication Instructions Recorded acetaminophen 325 mg tablet 325 mg PO PRN PRN 09/25/12 probiotics 1 tab PO DAILY 08/07/18 tumeric 1 cap PO DAILY 08/07/18 potassium chloride 20 mEq 20 meq PO DAILY very low K #30 tabs 11/06/18 tablet,extended release ipratropium 20 mcg-albuterol 100 1 puff inhalation Q6H #4 grams 10/05/21 mcg/actuation mist for inhalation (Combivent Respimat) Inhaler, Assist Devices [Pocket 1 ea miscellaneous DIRECTED ##0 11/19/21 Chamber] ondansetron 4 mg disintegrating 4 mg PO Q8H PRN #10 tabs 11/19/21 tablet mirtazapine 7.5 mg tablet 7.5 mg PO QHS #90 tabs 05/07/22 sucralfate 1 gram tablet 1 g PO QAC #20 tabs 05/09/22 famotidine 40 mg tablet 40 mg PO BID #180 tabs 11/05/22 cholecalciferol (vitamin D3) 50 50 mcg PO DAILY 11/22/22 mcg (2,000 unit) capsule lorazepam 0.5 mg tablet (Ativan) 0.5 mg sublingual DIRECTED 11/28/22 Current Visit Medications: Current Medications Generic Name Dose Route Start Last Admin Trade Name Freq PRN Reason Stop Dose Admin Acetaminophen 1,000 mg 12/13/22 06:00 Acetaminophen 500 Mg Tab PO 01/12/23 05:59 Q4H PRN PRN Balanced Salt Solution 500 ml 12/13/22 06:00 Balanced Salt Soln.-Plus 500 Ml Bag OP 01/12/23 05:59 DIRECTED [facility] Miscellaneous Medication 0 ml 12/13/22 06:00 Prednisolone 1%, Moxifloxacin 0.5%, Nepafenac 0.1% 5ml Btl OD 01/12/23 05:59 DIRECTED [facility] Miscellaneous Medication 0 ml 12/13/22 06:00 12/13/22 07:54 Tropicam./Phenyleph. (1/2.5%) 5 Ml Btl OD 01/12/23 05:59 1 drp DIRECTED [facility] Administration Tetracaine HCl 0 ml 12/13/22 06:00 Tetracaine 0.5% 4 Ml Btl OD 01/12/23 05:59 DIRECTED [facility] PFSH Active Problems Active Problems: Problem Status Onset Code Nuclear age-related cataract, right eye H25.11 Nuclear age-related cataract, left eye H25.12 Skin rash R21 Dental anomaly K00.[address] lung screening R91.8 COPD (chronic obstructive pulmonary disease) J44.9 Bloating R14.0 Screening for colon cancer Z12.11 Seasonal allergies J30.2 Viral gastritis K29.70 Dehydration E86.0 Sialolith K11.5 Cataracts, bilateral H26.9 Eyesight diminished H54.7 COPD suggested by initial evaluation J44.9 URI (upper respiratory infection) J06.9 Sleep difficulties G47.9 IBS (irritable bowel syndrome) K58.9 Vitamin D deficiency, unspecified 09/17/11 E55.9 Tobacco use disorder 04/10/15 F17.200 Osteoporosis 09/17/11 M81.0 Microscopic colitis 06/07/14 K52.839 Menopausal flushing 02/17/13 N95.1 Hyperlipidemia, unspecified 04/10/15 E78.5 Family history of colon cancer 02/10/13 Z80.0 Anxiety 02/04/12 F41.9 Advance directive in chart 04/17/16 Z78.9 Medical History Medical History Anxiety Hyperlipidemia Microscopic colitis Osteoporosis Postmenopausal Surgical History Surgical History Colonoscopy - IV Sedation (06/06/14) Dr Quintanilla Tubal Ligation, 1980s Tobacco Smoking/Tobacco Use Status: Current every day Tobacco Type: cigarettes Smoking packs per day: 0.75 Alcohol Alcohol Intake: never Substance Use Substance use: Never Substance use type: does not use Vital Signs and Lab Results Vital Signs Most Recent Vital Signs in EMR: Most Recent Vital Signs Temp Pulse Resp BP Pulse Ox 35.9 C L 82 16 108/74 95 12/13/22 07:41 12/13/22 07:41 12/13/22 07:41 12/13/22 07:41 12/13/22 07:41 Lab Results Blood Type / Crossmatch: No Data to Display Complete Blood Count: No Data to Display Complete Metabolic Panel: No Data to Display Liver Function Panel: 2 No Data to Display Coagulation Panel: No Data to Display Cardiac Panel: No Data to Display Arterial Blood Gas: No Data to Display Venous Blood Gas: No Data to Display Pancreas Panel: No Data to Display Thyroid Panel: No Data to Display Infectious Disease: No Data to Display Blood Cultures: No Data to Display Toxicology Panel: No Data to Display Imaging and Studies Imaging and Studies Study information below may be from another EMR and interpreted by another provider. Please see original notes in EMR for more complete details. EKG Summary: 11/19/2021 Conclusion Sinus rhythm...normal P axis, V-rate 60- 99 Low voltage, extremity and precordial leads...extremity<0.5mV, precordial<1.0mV sinus rhythm, normal axis, normal intervals, non ischemic Pulmonary Function Summary: 01/28/2022 Pulmonary Function Test Result Requesting Provider Amparo Brewer Indications: ADHIKARI Interpretation Spirometry: There is moderate airflow limitation. There is no significant bronchodilator response. There is inspiratory loop blunting. Impression Moderate airflow obstruction. Inspiratory loop blunting in the correct clinical context could represent vocal cord dysfunction. Clinical Correlation therefore is recommended. Anesthesia Assessment and Plan Anesthesia History Personal History: No History of Anesthesia Complications Family History: No Family History of Anesthesia Complications Exercise Tolerance Exercise Tolerance: Metabolic Equivalents>4 Pertinent Negatives Pertinent Negatives: No Major Cardiovascular Symptoms or Complaints and No Major Pulmonary Symptoms or Complaints Cardiac & Pulmonary Exam Cardiac Exam: Normal S1/S2 Heart Sounds Pulmonary Exam: Clear Bilateral Breath Sounds Cardiac and Pulmonary Comment:: Used inhaler this am, breathing is at patient's baseline Implantable Cardiac Device Does patient have a Pacemaker or an ICD?: No Airway Exam Known Difficult Airway: No Mallampati Class: 2 Mouth Opening: Normal (> 3cm) Thyromental Distance: Greater than 3 cm Neck Range of Motion: Full ROM Neck Circumference: Normal Teeth Condition: Normal Dentition ASA Classification ASA Score: ASA 2 Emergency Case?: No NPO Status NPO Status: NPO Clears >2 hours, Solids >8 hours Anesthesia Plan Resuscitation Status: Full Code Anesthesia Technique: MAC Anesthesia Airway Planned: Natural Airway Monitors Used: Standard Monitors
[2022-12-13 08:26] VITALS: BMI 21.4
[2022-12-13] MEDS: Balanced Salt Soln.-PLUS 500 ML BAG OP (09:04)
[2022-12-13] MEDS: Tetracaine 0.5% 4 ML BTL OD (09:05)
[2022-12-13] MEDS: Duovisc Viscoelastic System EACH 1 EACH (09:06)
[2022-12-13] MEDS: Lidocaine 1% Pres-Free 5 ML VIAL (09:07)
[2022-12-13] MEDS: Phenylephrine/Lidocaine (15/10) MG/ML 1 ML VIAL (09:08)
[2022-12-13] MEDS: Povidone-Iodine Ophth 30 ML BTL (09:09)
[2022-12-13 09:26] VITALS: BP 107/69; PULSE 63; RESP 16; TEMP 36.6; O2SAT 97
--- NOTE | 2022-12-13 09:26 | W.PM.DSUDISC ---
Date of service: 12/13/22 Time of Service: 09:26 Discharge Plan Disposition Patient Disposition: Home Discharge Details Attending Provider: Gino Walters Primary Care Provider: Amparo Brewer Home Meds and New Rx's Prescriptions: No Action potassium chloride 20 mEq tablet extended release 20 meq PO DAILY Qty: 30 1RF Rx Instructions: 5 days of K, then recheck with labs. sucralfate 1 gram tablet 1 g PO QAC Qty: 20 1RF Rx Instructions: Trial for gastritis; Make into SLURRY tumeric 1 cap PO DAILY probiotics 1 tab PO DAILY Combivent Respimat 20-100 mcg/actuation mist 1 puff inhalation Q6H Qty: 4 1RF Rx Instructions: Trial for cough/congestion (use INSTEAD of albuterol) cholecalciferol (vitamin D3) 50 mcg (2,000 unit) capsule 50 mcg PO DAILY acetaminophen 325 MG tablet 325 mg PO PRN PRN mirtazapine 7.5 mg tablet 7.5 mg PO QHS Qty: 90 1RF Rx Instructions: Continue; may take half PRN change in sleep. famotidine 40 mg tablet 40 mg PO BID Qty: 180 3RF Rx Instructions: Continue for gastritis, due to possible rxn to PPI Inhaler, Assist Devices [Pocket Chamber] 1 ea miscellaneous DIRECTED Qty: 0 0RF ondansetron 4 mg tablet,disintegrating 4 mg PO Q8H PRNQty: 10 0RF lorazepam [Ativan] 0.5 mg Tablet 0.5 mg sublingual DIRECTED Discharge Instructions Stand Alone Forms: Post-op Topical CataractCandi (DSU) Discharge Orders Discharge Orders: Discharge Order (Routine); Ordered 12/13/22 Ordered By: Gino Walters DS: Diagnosis Discharge Diagnosis (1) Nuclear age-related cataract, right eye: Status: Resolved
--- NOTE | 2022-12-13 09:26 | W.PM.OP ---
Date of service: 12/13/22 Time of Service: 09:26 Operative Note Operative Note DATE OF PROCEDURE: 12/13/22 PRE-OP DIAGNOSIS: Nuclear cataract, right eye POST-OP DIAGNOSIS: same PROCEDURE: Cataract extraction using phacoemulsification with intraocular lens implant, right eye SURGEON: Gino Walters ANESTHESIA TYPE: Local By Surgeon and MAC Refer to Anesthesia Record ESTIMATED BLOOD LOSS: 0 PATHOLOGY: none sent COMPLICATIONS: None Patient was transported to: same day Patient's condition: stable Implants: Alfred Clareon [id number] Indications: Progressive decreased vision due to cataract, right eye Procedure Description: CATARACT SURGERY OPERATIVE REPORT PREOPERATIVE DIAGNOSIS: Nuclear cataract, right eye POSTOPERATIVE DIAGNOSIS: Same OPERATION: Cataract extraction using phacoemulsification with posterior chamber intraocular lens implant, right eye. IOL: IOL Form Block Maker/Model: Alfred Clareon [id number] IOL Power: + 17.5 diopters IOL Serial Number: [id number] Optic Diameter: 6.0mm Haptic/Overall Diameter: 13.0mm PHACO INFO: Alfred Seal Softwareurion Vision System with OZil and Active Fluidics Cumulative Dispersed Energy (CDE): 26.40 seconds SURGEON: Gino Walters MD, ANDER ANESTHESIA: Monitored Anesthesia Care (MAC), with local sub-tenon's anesthetic infiltration COMPLICATIONS: None SPECIMENS: None INDICATIONS FOR PROCEDURE: The patient is a 72-year-old lady with history of diminished visual acuity in both eyes secondary to the development of bilateral nuclear cataract. She has already undergone cataract surgery in the left eye and is doing well postoperatively. She now presents for cataract surgery in the right eye. See office notes for detailed information. PROCEDURE: The correct surgical eye was identified and marked as the right eye and the pupil was dilated in the preoperative area using mydriatics and cycloplegics. The dilated pupil size was 6.5 mm. Oral sedation was administered in the form of an Imprimis MKO Melt (midazolam 3mg/ketamine 25mg/ondansetron 2mg). The patient was brought to the operating room where cardiopulmonary monitoring was instituted and surgical time-out was performed, confirming the correct operative eye and IOL power. Topical anesthesia was administered and ophthalmic povidone-iodine 5% was instilled into the conjunctival fornices. The giles-ocular area was prepped with Betadine 10% solution and draped in the usual sterile fashion for intraocular surgery, including an aperture drape. A Tegaderm transparent film dressing was cut in half and used to cover the lashes and lid margins. Care was taken to sequester the lashes and lid margins under the Tegaderm dressing. A lid speculum was placed between the lids of the operative eye and the Carleen-Patrice operating microscope was maneuvered into position. Jaida scissors were then used to make a conjunctival buttonhole approximately 6mm posterior to the limbus in the inferonasal quadrant. Blunt dissection was carried out to expose bare sclera, and a blunt-tipped sub-tenon?s anesthesia cannula was introduced and passed posteriorly along the globe where non-preserved plain lidocaine was injected into posterior sub-Tenon?s space. A sideport knife was used to make a paracentesis port. Intraocular phenylephrine/lidocaine was injected into the anterior chamber. The anterior chamber was then filled with viscoelastic. A keratome knife was used to construct a two--plane clear corneal tunnel extending 2.0mm into clear cornea. A flap was raised on the anterior capsule and capsulorhexis forceps were used to complete a continuous curvilinear capsulorhexis of 5.5 mm. Balanced salt solution was then used to perform cortical cleaving hydrodissection and nuclear hydrodelineation until the lens could be freely rotated within the capsular bag. The lens nucleus was then disassembled and removed within the capsular bag and iris plane using phacoemulsification. Residual cortical material was removed using the I/A handpiece. The posterior capsule was carefully polished to remove as much residual lens epithelial cells as safely possible. The capsular bag was then inflated and the anterior chamber deepened with cohesive viscoelastic. The lens implant described above was inserted into the capsular bag using the Alfred Autonome Injector. A Kuglen hook was used to dial the IOL into position. Residual viscoelastic was then removed first from posterior to the IOL, then from the anterior chamber using the I/A handpiece. The lens implant was noted to center nicely within the capsular bag. The incisions were stromally hydrated, and the anterior chamber was reformed using BSS. Then 0.5cc of moxifloxacin 1.0mg/ml were injected into the capsular bag and anterior chamber. The incisions were checked with a Weck spear and found to be secure. Several drops of ophthalmic povidone-iodine 5% were then applied to the eye followed by two drops of Imprimis combination prednisolone/moxifloxacin/nepafenac solution. The drapes were removed and a clear plastic protective eye shield was placed over the eye. The patient was then returned to Same Day Surgery in stable condition.
[2022-12-13 09:42] VITALS: BP 101/73; PULSE 76; RESP 18; TEMP 36.5; O2SAT 95
--- NOTE | 2022-12-13 09:46 | W.ANESPOSTOP ---
Postoperative Evaluation Date, Time and Location Date Performed: 12/13/22 Time Performed: 09:31 Patient Location: Day Surgery Unit Vital Signs Most Recent Imported Vital Signs: Most Recent Vital Signs Temp Pulse Resp BP Pulse Ox 36.5 C 76 18 101/73 95 12/13/22 09:42 12/13/22 09:42 12/13/22 09:42 12/13/22 09:42 12/13/22 09:42 Pain Score Most Recent Pain Score: Most Recent Pain Score Pain Level 0 12/13/22 09:42 Assessment Mental Status: Awake (Alert & Oriented to Patient Baseline) Airway and Respiratory Function: Patent airway with normal (patient baseline) respiratory exam Cardiovascular Function: Hemodynamically Stable Hydration Status: Adequately Hydrated Nausea & Vomiting: No Nausea or Vomiting Pain: Pt. Denies Any Pain Peripheral Nerve Block: Patient did not receive a nerve block
== END 2022-12-13 09:59 | disposition home or self-care (01) ==
LOC: SUR 07:20
PROVIDERS: PCP Student in an Organized Health Care Education/Training Program; Visit Provider Ophthalmology
PROC: (CPT 66984; principal; 2022-12-13 09:00)
DX: H25.11 Age-related nuclear cataract, right eye (principal); F41.9 Anxiety disorder, unspecified; E86.0 Dehydration
CPT/HCPCS: 66984; V2632

== ENCOUNTER 2023-01-21 02:26 | Outpatient (CLI) | payer MEDICARE, BC, SELFPAY ==
[2023-01-21 10:52] LABS: Anion Gap 7.1 mmol/L (3-11); BUN 14 mg/dL (7-18); CO2 28.9 mmol/L (21.0-32.0); CREATININE 0.9 mg/dL (0.55-1.02); Calcium 8.9 mg/dL (8.5-10.1); Calculated LDL 185 mg/dL (<100); Chloride 101 mmol/L (98-107); Cholesterol 278 mg/dL (<200); Glucose 111 mg/dL (74-106); HDL Cholesterol 57 mg/dL (40-60); Magnesium 1.8 mg/dL (1.8-2.4); Potassium 3.8 mmol/L (3.5-5.1); Sodium 137 mmol/L (136-145); Triglyceride 180 mg/dL (<150)
[2023-01-21 11:42] LABS: Vitamin D 25 Total 44.6 ng/mL (30-100)
== END 2023-01-21 02:27 | disposition home or self-care (01) ==
LOC: LBO 02:26
PROVIDERS: PCP Student in an Organized Health Care Education/Training Program; Referring Provider Student in an Organized Health Care Education/Training Program; Visit Provider Student in an Organized Health Care Education/Training Program
DX: E55.9 Vitamin D deficiency, unspecified (principal); E86.0 Dehydration; H26.9 Unspecified cataract; K58.9 Irritable bowel syndrome, unspecified; M81.0 Age-related osteoporosis without current pathological fracture; E78.5 Hyperlipidemia, unspecified
CPT/HCPCS: 36415; 80048; 80061; 82306; 83735

== ENCOUNTER → 2023-03-31 10:21 | Outpatient (BNVA) | payer MEDICARE, BC, SELFPAY | PROVIDERS: PCP Student in an Organized Health Care Education/Training Program; Referring Provider Student in an Organized Health Care Education/Training Program; Visit Provider Student in an Organized Health Care Education/Training Program | DX: J44.9 Chronic obstructive pulmonary disease, unspecified (principal); Z79.899 Other long term (current) drug therapy; F17.210 Nicotine dependence, cigarettes, uncomplicated | CPT/HCPCS: 99214 ==

== ENCOUNTER → 2023-04-21 02:54 | Outpatient (CLI) | payer MEDICARE, BC, SELFPAY ==
--- NOTE | 2023-04-21 07:30 | DI.CTLCSR_ITS ---
Exam(s) CT CHEST LUNG CANCER SCREEN EXAM: CT CHEST LUNG CANCER SCREEN CLINICAL HISTORY: Screening for lung cancer,smoker, f17.210. TECHNIQUE: Imaging Protocol: Low Dose Technique CONTRAST MATERIAL: None COMPARISON: CT CT CHEST LUNG CANCER SCREEN from 04/17/2022 FINDINGS: CHEST: LUNGS: There are no ominous pulmonary nodules. There are no confluent infiltrates. No pleural effusi ons. MEDIASTINUM: There is no obvious hilar nor mediastinal adenopathy. CARDIAC: Heart size is normal. There is no pericardial effusion.Caliber of the thoracic aorta is wit hin normal limits. OTHER: None OSSEOUS: No significant osseous lesions.. IMPRESSION: 1. No significant pulmonary nodules 2. No infiltrates nor pleural effusions nor intrathoracic adenopathy. 3. Lung RADS Cat 1 - Negative: No nodules and definitely benign nodules Lung-RADS 1.0 CATEGORIES: Category 0 - Prior chest CT exam(s) being located for comparison. Category 1 - Annual screening in 12 months. No nodules or definitely benign nodules. Category 2 - Annual screening in 12 months. Benign appearance. Nodules with low likelihood of becomin g active cancer. Category 3 - 6-month follow-up. Probably benign. Short-term follow-up suggested. Nodules with low lik elihood of becoming active cancer. Category 4A - 3-month follow-up and CT/PET if >8 mm in size. Suspicious finding. Findings which requi re additional testing. Category 4B - Findings which require additional testing and tissue sampling. Category 4X - Category 3 or 4 nodules with additional features or imaging findings that increases the suspicion of malignancy. Modifier S- Potentially clinically significant findings (non lung cancer) RADIATION DOSE DELIVERED: Total DLP DATA REPOSITORY: All CT scans at this facility are submitted to the National Radiology Data Registry (NRDR) Dose Index Registry (DIR) with the [employer] (ACR). RADIATION OPTIMIZATION: All CT scans at this facility use at least one of these dose optimization te chniques: automated exposure control; mA and/or kV adjustment per patient size (includes targeted exa ms where dose is matched to clinical indication); or iterative reconstruction.
== END ==
PROVIDERS: PCP Student in an Organized Health Care Education/Training Program; Visit Provider Student in an Organized Health Care Education/Training Program
DX: F17.210 Nicotine dependence, cigarettes, uncomplicated (principal); Z12.2 Encounter for screening for malignant neoplasm of respiratory organs
CPT/HCPCS: 71271

== ENCOUNTER → 2023-09-03 14:56 | Outpatient (CLI) | payer MEDICARE, BC, SELFPAY ==
--- NOTE | 2023-09-03 14:45 | DI.RAD_ITS ---
Exam(s) XR CHEST 2V PA LATERAL EXAM: XR CHEST 2V PA LATERAL CLINICAL HISTORY: SHORTNESS OF BREATH R06.02 TECHNIQUE: 2D digital imaging was performed. Two views. COMPARISON: CT CT CHEST LUNG CANCER SCREEN from 04/21/2023 FINDINGS: HEART: Normal size. Aorta: Not dilated. PULMONARY VASCULATURE: Normal. LUNGS: Hyperinflated but clear. PLEURAL SPACE: No pleural effusion or pneumothorax. BONE:Unremarkable for age. Soft tissues: Unremarkable. IMPRESSION: No acute abnormality. DATA REPOSITORY: RADIATION DOSE DELIVERED:
== END ==
PROVIDERS: PCP Student in an Organized Health Care Education/Training Program; Visit Provider Nurse Practitioner Family
DX: R06.02 Shortness of breath (principal)
CPT/HCPCS: 71046

== ENCOUNTER → 2023-10-07 03:16 | Outpatient (CLI) | payer MEDICARE, BC, SELFPAY ==
--- NOTE | 2023-10-07 11:39 | DI.RAD_ITS ---
Exam(s) XR SINUS COMPLETE 3+V EXAM: XR SINUS COMPLETE 3+V CLINICAL HISTORY: evaluate sinus passageways,SINUS PAIN, NASAL CONGESTION,R09.81,J34.89 TECHNIQUE: 2D digital imaging was performed. COMPARISON: No exams were available for comparison FINDINGS: No evidence of fracture. No lytic or blastic lesion. Sinuses are clear as visualized. IMPRESSION: Negative sinus series.
== END ==
PROVIDERS: PCP Student in an Organized Health Care Education/Training Program; Visit Provider Student in an Organized Health Care Education/Training Program
DX: R09.81 Nasal congestion (principal); J34.89 Other specified disorders of nose and nasal sinuses
CPT/HCPCS: 70220

== ENCOUNTER 2024-02-13 02:31 | Outpatient (CLI) | payer MEDICARE, BC, SELFPAY ==
--- OUTSIDE RECORDS SUMMARY | 2024-02-13 03:10 | XMS_ITS | Encounter Summary ---
Author Organization [facility] Address [address] [place] [address] Care Team Providers Care Rn Diabetes Name Role Phone Laura Peters NP Primary Care Provider [phone] Amparo Brewer DO Primary Care Provid er Encounter Details Date Type Department Care Team (Late st Contact Info) Description 10/08/2021 Lab Requisition [facility] Pathology & Laboratory Medicine - [address] [id number] Outr Resulting Lab, Provider Social History Tobacco Use Types Packs/Day Years Used Date Smoking Tobacco: Never Assessed Sex and Gender Information Value Date Recorded Sex Assigned at Not on file Gender Identity Not on file Sexual Orientation Not on file documented as of this encounter Plan of Treatment Not on file documented as of this encounter Procedures Procedure Name Priority Date/Time Associated Diagnosis Comments EVELIO INFLUENZA A AND B, RSV PCR Routine 10/07/2021 15:30 EDT documented in this encounter Results * (ABNORMAL) INFLUENZA A AND B,RSV PCR (10/07/2021 15:30 EDT) FLU A RNA Result (FLARES) Positive(A) Negative 10/08/2021 14:43 EDT [facility] FLU B RNA Result (FLBRES) Negative Negative 10/08/2021 14:43 EDT [facility] RSV RNA Result (RSVRES) Negative Negative 10/08/2021 14:43 EDT [facility] Swab ENTIRE NASOPHARYNX / Unknown 10/07/2021 15:30 EDT 10/08/2021 10:59 EDT Provider Outr Resulting Lab MICROBIOLOGY - GENERAL ORDERABLES [facility] [address] [place] [address] documented in this encounter Visit Diagnoses Not on filedocumented in this encounter Additional Health Concerns Infection Onset Date Last Indicated Resolved Time Influenza 10/07/2021 10/07/2021 10/17/2021 22:1 5 EDT documented as of this encounter Care Teams Rn Diabetes Relationship Specialty Start Date End Date Laura Peters NP [address] [place] [address] PCP - General 06/09/14 01/16/22 Amparo Brewer DO [address] [place] [address] PCP - General 01/17/22 documented as of this encounter
--- OUTSIDE RECORDS SUMMARY | 2024-02-13 03:10 | XMS_ITS | Encounter Summary ---
Author Organization [facility] Address [address] [place] [address] Care Team Providers Care Operations Controller Name Role Phone Unavailable Primary Care Provider Unavailabl e Encounter Details Date Type Department Care Team (Late st Contact Info) Description 04/08/2014 Results Only [facility] [phone] Daryn Sevilla, [employer]ER [address], [place] [id number] Social History Tobacco Use Types Packs/Day Years Used Date Smoking Tobacco: Never Assessed Sex and Gender Information Value Date Recorded Sex Assigned at Not on file Gender Identity Not on file Sexual Orientation Not on file documented as of this encounter Plan of Treatment Not on file documented as of this encounter Procedures Procedure Name Priority Date/Time Associated Diagnosis Comments PAP TEST- RESULT ONLY Routine 04/08/2014 0:00 EST documented in this encounter Results * PAP TEST- RESULT ONLY (04/08/2014 0:00 EST) Pathology Report: CYTOPATHOLOGY REPORT Reports generated via electronic interface contain original data; however they are lacking the format of the original report. Caution should be taken when reading/interpreti ng unformatted reports. Name: ? TATUM MURILLO ? Accession #: ? [id number] ? : ? 1950 (Age: 63) ??F ?Collect Date: ? 04/08/2014 ? Location: ? [facility] ? Receive Date: ? 04/11/2014 ? Provider: DARYN SEVILLA [employer] Copy to: ? Final Report SPECIMEN ADEQUACY ? Satisfactory for Evaluation - assessment of transformation zone component not applicable ( e.g. atrophy, vaginal sample, hysterectomy) - scant squamous epithelial component GENERAL CATEGORIZATION ? Negative for Intraepithelial Lesion or Malignancy ?? Last Menstrual Period: 2003 Specimen/Source: ??Pap Test, Endocervix, ThinPrep Imaging System with manual evaluation Document reviewed and electronically signed by: ? FRANCISCO Carter(ASCP)(IAC) ? Report ??Date: 04/18/2014 15:05 HPV with Pap Test ? Date Ordered: ? 04/18/2014 ? Status: ?? Signed Out ?Date Complete: ? 04/20/2014 ? By: ??System Interface ? Date Reported: ? 04/20/2014 ? Interpretation RESULT: Negative for HPV. No E6 or E7 mRNA is detected from HPV types 16,18,31,33,35, 39,45,51,52,56,58, 59,66, and 68 by repairer maintenance building mediated amplification. Comments Document reviewed and electronically signed by: ? System Interface ? Report date: 04/20/2014 By the signature above, the attending physician certifies that he/she has personally conducted a gross and/or microscopic examination of the described specimens and rendered or confirmed the above diagnosis. End of Report [facility] 04/08/2014 04/11/2014 Daryn Sevilla [employer] PATHOLOGY ORDERAB LES [facility] [address] [place] [address] documented in this encounter Visit Diagnoses Not on filedocumented in this encounter
--- OUTSIDE RECORDS SUMMARY | 2024-02-13 03:10 | XMS_ITS | Referral Summary ---
Author Organization [facility] Address [address] [place] [address] Care Team Providers Care Roll Bucker Name Role Phone Amparo Brewer DO Primary Care Provid er Social History Tobacco Use Types Packs/Day Years Used Date Smoking Tobacco: Never Assessed Sex and Gender Information Value Date Recorded Sex Assigned at Not on file Gender Identity Not on file Sexual Orientation Not on file Plan of Treatment Not on file Care Teams Roll Bucker Relationship Specialty Start Date End Date Amparo Brewer DO [address] [place] [id number] PCP - General 01/17/22
--- OUTSIDE RECORDS SUMMARY | 2024-02-13 03:10 | XMS_ITS | Encounter Summary ---
Author Organization [facility] Address [address] [place] [address] Care Team Providers Care Slat Twister Name Role Phone Unavailable Primary Care Provider Unavailabl e Encounter Details Date Type Department Care Team (Late st Contact Info) Description 06/29/2007 Results Only [facility] - Maple conversion [address] [place] [address] Vincenzo Maharaj MD [address] [place] [id number] Social History Tobacco Use Types Packs/Day Years Used Date Smoking Tobacco: Never Assessed Sex and Gender Information Value Date Recorded Sex Assigned at Not on file Gender Identity Not on file Sexual Orientation Not on file documented as of this encounter Plan of Treatment Not on file documented as of this encounter Procedures Procedure Name Priority Date/Time Associated Diagnosis Comments SURGICAL PATHOLOGY Routine 06/29/2007 0:00 EST documented in this encounter Results * SURGICAL PATHOLOGY (06/29/2007 0:00 EST) Pathology Report: SURGICAL PATHOLOGY REPORT Reports generated via electronic interface contain original data; however they are lacking the format of the original report. Caution should be taken when reading/interpreting unformatted reports. Name: ? TATUM MURILLO ? Accession #: ? [id number] ? : ? 1950 (Age: 56) ??F ? Collect Date: ? 06/29/2007 ? Location: ? [facility] ? Receive Date: ? 06/29/2007 ? Provider: VINCENZO MAHARAJ MD Copy to: TYRELL AYON [employer] FARM WORKER ? Final Pathologic Diagnosis: A. ?Ileum, terminal, biopsy: 1. ?Small intestinal mucosa with no pathologic features. B. ?Colon, sigmoid, biopsy: 1. ?Lymphocytic colitis. ??See comment. C. ?Rectum, biopsy: 1. ?Lymphocytic colitis. ??See comment. Comment: ? Dr. Radha Florian has reviewed this case in consultation. ??Sections feature expansion of the lamina propria by a lymphoplasmacytic infiltrate, which is accompanied by surface epithelial damage. ??A thickened subepithelial collagen band is not seen. ??Scattered neutrophils are also seen. ??The presence of occasional neutrophils can be seen in lymphocytic colitis. ??Per the endoscopy report, the patient's bowel was endoscopically normal. ??Therefore, given the histologic findings, the features are most compatible with lymphocytic colitis. (Dr. Espinal)/[facility] Document reviewed and electronically signed by: ARTURO ESPINAL MD Report ??Date: 07/01/2007 16:34 By the signature above, the attending physician certifies that he/she has personally conducted a gross and/or microscopic examination of the described specimens and rendered or confirmed the above diagnosis. Specimen(s) Received: A. ?Bx terminal ileum B. ? Bx sigmoid C. ? Bx rectum Clinical History: ? Diarrhea Gross Description: ? Received in Hollande's fixative labelled Murillo and #1 bx terminal ileum are two biopsies measuring 0.3 x 0.2 x 0.2 cm, each. ??Submitted in toto as (A). Received in Hollande's fixative labelled Murillo and #2 bx sigmoid are two biopsies measuring 0.3 x 0.3 x 0.3 cm and 0.4 x 0.3 x 0.2 cm. ??Submitted in toto as (B). Received in Hollande's fixative labelled Murillo and #3 bx rectum are two biopsies measuring 0.3 x 0.2 x 0.1 cm and 0.4 x 0.2 x 0.2 cm. ??Submitted in toto as (C). ??(DEVANTE Dc)/izzy End of Report [facility] 06/29/2007 06/29/2007 8:3 7 EST Vincenzo Maharaj MD PATHOLOGY ORDERABLE [facility] [address] [place] [address] documented in this encounter Visit Diagnoses Not on filedocumented in this encounter
--- OUTSIDE RECORDS SUMMARY | 2024-02-13 03:10 | XMS_ITS | Encounter Summary ---
Author Organization [facility] Address [address] [place] [address] Care Team Providers Care Brand Sales Consultant Name Role Phone Laura Peters NP Primary Care Provider [phone] Amparo Brewer DO Primary Care Provid er Encounter Details Date Type Department Care Team (Late st Contact Info) Description 10/06/2021 Lab Requisition [facility] Pathology & Laboratory Medicine - [address] [id number] Outr Resulting Lab, Provider Social History Tobacco [...] Procedure Name Priority Date/Time Associated Diagnosis Comments ZZCOVID-19 TEST [facility] PCR Today 10/05/2021 15:30 EDT COVID-19 TESTING Routine 10/05/2021 15:3 0 EDT documented in this encounter Results * COVID-19 TEST [facility] PCR (10/05/2021 15:30 EDT) Swab 10/05/2021 15:3 0 EDT 10/06/2021 21:53 EDT Provider Outr Resulting Lab MICROBIOLOGY - GENERAL ORDERABLES [facility] [address] [place] [address] * COVID-19 TESTING (10/05/2021 15:30 EDT) COVID-19 rt-PCR Result Negative Negative 10/07/2021 14:28 EDT [facility] Comment: This test has not been FDA cleared or approved. This test has been authorized by FDA under an EUA for use by authorized laboratories. This test has been authorized only for detection of nucleic acid from 2019-nCoV, not for any other viruses or pathogens. This test is only authorized for the duration of the declaration that circumstances exist justifying the authorization of emergency use of in vitro diagnostic tests for detection and/or diagnosis of 2019-nCoV under section 564(b)(1) of Act, 21 U.S.C ?? 360bbb-3(b) (1), unless the authorization is terminated or revoked sooner. Negative results do not preclude 2019-nCoV infection and should not be used as the sole basis for treatment or other patient management decisions. Negative results must be combined with clinical observations, patient history, and epidemiological information. Testing was performed using the elana SARS-CoV-2 assay ([employer] on the Elana 6800 System Performing Lab Elana 68[address] [facility] 10/07/2021 14:28 EDT [facility] Swab 10/05/2021 15:3 0 EDT 10/06/2021 21:53 EDT Provider Outr Resulting Lab MICROBIOLOGY - GENERAL ORDERABLES [facility] [address] [place] [address] documented in this encounter Visit Diagnoses Not on filedocumented in this encounter Additional Health Concerns Infection Onset Date Last Indicated Resolved Time Influenza 10/07/2021 10/07/2021 10/17/2021 22:1 5 EDT documented as of this encounter Care Teams Brand Sales Consultant Relationship Specialty Start Date End Date Laura Peters NP [address] [place] [address] PCP - General 06/09/14 01/16/22 Amparo Brewer DO [address] [facility] [place] [phone] PCP - General 01/17/22 documented as of this encounter
--- OUTSIDE RECORDS SUMMARY | 2024-02-13 03:10 | XMS_ITS | Encounter Summary ---
Author Organization [facility] Address [address] [place] [address] Care Team Providers Care Clinical Team Lead Name Role Phone Unavailable Primary Care Provider Unavailabl e Encounter Details Date Type Department Care Team (Latest Contact Info) Description 06/06/2014 13:37 EST - 06/06/2014 23:59 EST Hospital Encounter [address] [address] Unknown, Provider, Discharge Disposition: Home or Self Care Social History Tobacco Use Types Packs/Day Years Used Date Smoking Tobacco: Never Assessed Sex and Gender Information Value Date Recorded Sex Assigned at Not on file Gender Identity Not on file Sexual Orientation Not on file documented as of this encounter Discharge Disposition Disposition Code Departure Means Destination Home or Self Alf documented in this encounter Plan of Treatment Not on file documented as of this encounter Visit Diagnoses Not on filedocumented in this encounter
--- OUTSIDE RECORDS SUMMARY | 2024-02-13 03:10 | XMS_ITS | Clinical Summary ---
Author Organization [facility] Address [address] [place] [address] Care Team Providers Care Echometer Engineer Name Role Phone Amparo Brewer DO Primary Care Provid er Social History Tobacco Use Types Packs/Day Years Used Date Smoking Tobacco: Never Assessed Sex and Gender Information Value Date Recorded Sex Assigned at Not on file Gender Identity Not on file Sexual Orientation Not on file Plan of Treatment Health Maintenance Due Date Last Done Comments Hepatitis C Screen 1950 RSV Immunization ( o r 60+ Years) (1 - 1-dose 60+ series) 2009 Fall Risk Screening 2014 COVID-19 Vaccine (2022-24 season) 2023 Care Teams Echometer Engineer Relationship Specialty Start Date End Date Amparo Brewer DO [address] [place] [address] PCP - General 01/17/22
--- OUTSIDE RECORDS SUMMARY | 2024-02-13 03:10 | XMS_ITS | Clinical Summary ---
Author Organization [facility] Address [facility] [place] [address] Care Team Providers Care Psychological Tests Sales Agent Name Role Phone Unknown Primary Care Provider Unavailabl e Allergies No known active allergies Medications Medication Sig Dispensed Refills Start Date End Date Status ESTRADIOL ORAL 1 mg, PO, QD 08/26/2003 Active medroxyPROGESTERone (PROVERA) 5 mg tablet 5mg, PO, QD 08/26/2003 Ac tive Calcium Carbonate (TUMS) 300 mg (750 mg) Chew 08/26/2003 Acti ve Immunizations Name Administration Dates Next Due Influenza Vaccine, Whole 03/20/2006 Social History Tobacco Use Types Packs/Day Years Used Date Smoking Tobacco: Never Assessed Sex and Gender Information Value Date Recorded Sex Assigned at Not on file Gender Identity Not on file Sexual Orientation Not on file Plan of Treatment Health Maintenance Due Date Last Done Comments CT Colonography 1950 Colonoscopy 1950 Colorectal Cancer Screening 1950 FIT DNA 1950 FIT 1950 Sigmoidoscopy (10 year) with FIT yearly 1950 Sigmoidoscopy 1950 Hepatitis C Screening 08/07/1967 Tdap adult (Retired) 1968 Tetanus vaccine (Retired) 1968 Breast Cancer Share Decision Needed 1989 Breast Cancer screening 1989 Zoster vaccine (1 of 2) 08/07/1999 Advance Directive 2004 Bone Density Scan 2014 Pneumoccocal Vaccine: 65+ (1 of 1 - PCV) 2014 Covid-19 Vaccine (1 - season) 2024 Influenza (Flu) vaccine (1 o f 1 - Influenza standard series) 01/18/2024 03/20/2006 Care Teams Psychological Tests Sales Agent Relationship Specialty Start Date End Date Unknown None PCP - General 04/10/10
--- OUTSIDE RECORDS SUMMARY | 2024-02-13 03:10 | XMS_ITS | Encounter Summary ---
Author Organization [facility] Address [address] [place] [address] Care Team Providers Care Sales Ledger Clerk Name Role Phone Unavailable Primary Care Provider Unavailabl e Encounter Details Date Type Department Care Team (Late st Contact Info) Description 06/28/[address] [facility] Laboratory Services - [facility] ([facility]) [address], [place] [id number] Laura Ayon, ELECTRIC SYSTEM OPERATOR [address] [place] [address] Social History Tobacco Use Types Packs/Day Years Used Date Smoking Tobacco: Never Assessed Sex and Gender Information Value Date Recorded Sex Assigned at Not on file Gender Identity Not on file Sexual Orientation Not on file documented as of this encounter Plan of Treatment Not on file documented as of this encounter Procedures Procedure Name Priority Date/Time Associated Diagnosis Comments HPV DETECTION, HIGH RISK TYPES Routine 06/28/2009 14:20 EST CYTOPATHOLOGY Routine 06/28/2009 0:00 EST documented in this encounter Results * HUMAN PAPILLOMA VIRUS DNA TEST (06/28/2009 14:20 EST) Specimen Description Cervix, ThinPrep vial [facility] Result Negative for HPV types 16, 18, 31, 33, 35, 39, 45, 51, 52, 56, 58, 59, and 68. [facility] Report Status Final 07/06/2009 [facility] 06/28/2009 14:2 0 EST 07/04/2009 14:20 EST Laura Romana Ayon ELECTRIC SYSTEM OPERATOR MICROBIOLOGY - GENE RAL ORDERABLES [facility] [address] [place] [address] * CYTOPATHOLOGY (06/28/2009 0:00 EST) Pathology Report: CYTOPATHOLOGY REPORT ? Reports generated via electronic interface contain original data; ? however they are lacking the format of the original report. ? Caution should be taken when reading/interpreti ng unformatted reports. ? Name: ? TATUM MURILLO ? Accession #: ? [id number] ? : ? 1950 (Age: 58) ??F ?Collect Date: ? 06/28/2009 ? Location: ? [facility] ? Receive Date: ? 06/30/2009 ? Provider: ?LAURA L AYON ELECTRIC SYSTEM OPERATOR ? Copy to: ? Specimen/Source: ?Pap Test, Cervix, ThinPrep Imaging System with manual ?? evaluation ? Last Menstrual Period: ? 2004 ? Other: ? HPVDX - HPV testing requested regardless of diagnosis on current ThinPrep Pap ?? test. ? SPECIMEN ADEQUACY ? Satisfactory for Evaluation ? - assessment of transformation zone component not applicable ( e.g. atrophy, ? vaginal sample, hysterectomy) ? GENERAL CATEGORIZATION ? Negative for Intraepithelial Lesion or Malignancy ? Document reviewed and electronically signed by: ? Clare Masong, CT(ASCP) ? Report Date: ??07/04/2009 10:14 ? End of Report ? [facility] 06/28/2009 06/30/2009 Laura Ayon ELECTRIC SYSTEM OPERATOR PATHOLOGY ORDERABLE S [facility] [address] [place] [address] documented in this encounter Visit Diagnoses Not on filedocumented in this encounter
--- OUTSIDE RECORDS SUMMARY | 2024-02-13 03:10 | XMS_ITS | Encounter Summary ---
Author Organization Count Includes [facility] Address [facility] [place] [address] Care Team Providers Care Store Shopper Name Role Phone Unknown Primary Care Provider Unavailabl e Encounter Details Date Type Department Care Team (Late st Contact Info) Description 09/08/2003 Orders Only Obstetrics [place] [address] Karen Dinero MD [facility] OBSTETRICS [place] [address] Social History Tobacco Use Types Packs/Day Years Used Date Smoking Tobacco: Never Assessed Sex and Gender Information Value Date Recorded Sex Assigned at Not on file Gender Identity Not on file Sexual Orientation Not on file documented as of this encounter Plan of Treatment Not on file documented as of this encounter Procedures Procedure Name Priority Date/Time Associated Diagnosis Comments SURGICAL PATHOLOGY REPORT Routine 09/08/2003 12:49 PM EDT documented in this encounter Results * Surgical Pathology Report (09/08/2003 12:49 PM EDT) Surgical Pathology Report [id number] ? Location: The signing pathologist has (i) examined the relevant preparation(s) for the specimen(s) and (ii) rendered or confirmed the diagnosis(es). . ?Pathology Surgical Pathology Final Report Clinical Information Specimen Submitted: A - Vaginal polyp Clinical History: ? Inclusion cyst. Gross Description Labeled/Fixativ e: ? Labeled with the patient's name, formalin. Qty/Size/Weight : ?One, 0.8 x 0.6 x 0.5 cm. Tissue Description: ?? Irregular, pink-collins, soft nodule. ??Sectioning reveals ? a thin-walled cyst containing yellow-collins, mucoid ?material. Sections/Proces sing: ??(T1) ??aje/EJR Microscopic Description Slides reviewed, microscopic description not recorded. Diagnosis Vaginal lesion: ?? Benign Mullerian vaginal cyst. CR-0 09/09/03 [facility] 09/09/03 Verified by: ? Thierry Campo MD ?Pathologist ?(Electronic Signature) The attending pathologist whose signature appears on this report has reviewed all diagnostic slides and has edited the gross and/or microscopic portion of the report in rendering the final pathologic diagnosis. DERECK SILVA 09/08/2003 12:4 9 PM EDT Karen Dinero MD PATHOLOGY/CYTOLOGY O S[facility]IERATYE Performing Organization Address City/State/[facility] Co fl Phone Number DERECK SILVA documented in this encounter Visit Diagnoses Not on filedocumented in this encounter Care Teams Store Shopper Relationship Specialty Start Date End Date Unknown None PCP - General 04/10/10 documented as of this encounter
--- OUTSIDE RECORDS SUMMARY | 2024-02-13 03:10 | XMS_ITS | Encounter Summary ---
Author Organization [facility] Address [address] [place] [address] Care Team Providers Care Top Closer Name Role Phone Floramiah Amparopinky Mckeon DO Primary Care Provid er Encounter Details Date Type Department Care Team (Late st Contact Info) Description 02/25/2022 Lab Requisition [facility] Pathology & Laboratory Medicine - [facility] [address] [place] [address] Raleigh Quintanilla MD [address] [place] [phone] Encounter for other general examination Social History Tobacco Use Types Packs/Day Years Used Date Smoking Tobacco: Never Assessed Sex and Gender Information Value Date Recorded Sex Assigned at Not on file Gender Identity Not on file Sexual Orientation Not on file documented as of this encounter Plan of Treatment Not on file documented as of this encounter Procedures Procedure Name Priority Date/Time Associated Diagnosis Comments SURGICAL PATHOLOGY Today 02/25/2022 11 :52 EDT Encounter for other general examination documented in this encounter Results * SURGICAL PATHOLOGY (02/25/2022 11:52 EDT) Note to Patient The following pathology results have been interpreted by your pathologist and may be available to you before your health provider has had the opportunity to review them. Please allow time for your provider to receive these results and explore management options, if applicable. 02/26/2022 16:20 EDT [facility] Final Diagnosis A. DUODENUM, BIOPSY: - Normal duodenal mucosa. No evidence of celiac sprue, no parasites. B. GASTRIC, ULCER, BIOPSY: - Erosive reactive gastropathy consistent with nearby ulcer. No ulcer identified, no dysplasia or malignancy. No Helicobacter organisms. C. STOMACH, ANTRUM, BIOPSY: - Reactive gastropathy. No Helicobacter organisms. D. GASTROESOPHAGEAL JUNCTION, BIOPSY: - Eroded squamocolumnar junctional mucosa consistent with reflux injury. No intestinal metaplasia. 02/26/2022 16:20 [facility] Attestation By the signature below, the attending physician certifies that they have 1) personally conducted a gross and/or microscopic examination of the described specimen(s), and/or personally interpreted the results of laboratory testing of the described specimen(s), and 2) personally rendered or confirmed the above diagnosis. 02/26/2022 16:20 [facility] at [address] Clinical History Abdominal pain, bloating 02/26/2022 16:20 [facility] Gross Description A. Received in formalin labelled with proper patient identification (initials K, A) and bx duodenum are 4 collins tissues (0.2 x 0.1 x 0.1 cm to 0.1 x 0.1 x 0.1 cm). Entirely submitted in A1. B. Received in formalin labelled with proper patient identification (initials K, A) and bx gastric ulcer is a single collins tissue fragment (0.3 x 0.2 x 0.1 cm). Submitted intact in B1. C. Received in formalin labelled with proper patient identification (initials K, A) and bx antrum is a single collins tissue fragment (0.5 x 0.2 x 0.1 cm). Submitted intact in C1. D. Received in formalin labelled with proper patient identification (initials K, A) and bx GE junction are two collins tissues (0.4 x 0.1 x 0.1 cm and 0.3 x 0.1 x 0.1 cm). Entirely submitted in D1. EDMAR CLINTON 02/26/2022 5:21 02/26/2022 16:20 [facility] Performing Lab [facility] 16:20 [facility] Scanned Images 02/26/2022 16:20 EDT [facility] Tissue ENTIRE ESOPHAGUS / Unknown 02/25/2022 11:52 EDT 02/25/2022 18:03 EDT Tissue specimen (specimen) STOMACH STRUCTURE / Unknown 02/25/2022 11:52 EDT 02/25/2022 18:03 EDT Tissue specimen (specimen) STOMACH STRUCTURE / Unknown 02/25/2022 11:52 EDT 02/25/2022 18:03 EDT Tissue specimen (specimen) ESOPHAGEAL STRUCTURE / Unknown 02/25/2022 11:52 EDT 02/25/2022 18:03 EDT Raleigh Quintanilla MD PATHOLOGY ORDERA TYE [facility] Organization Address City/State/ZIP Co de Phone Number [facility] [address] [place] [address] documented in this encounter Visit Diagnoses Diagnosis Encounter for other general examination documented in this encounter Care Teams Top Closer Relationship Specialty Start Date End Date Amparo Brewer DO [address] [place] [address] PCP - General 01/17/22 documented as of this encounter
--- OUTSIDE RECORDS SUMMARY | 2024-02-13 03:10 | XMS_ITS | Encounter Summary ---
Author Organization [facility] Address [address] [place] [address] Care Team Providers Care Auto Painter Helper Name Role Phone Unavailable Primary Care Provider Unavailabl e Encounter Details Date Type Department Care Team (Late st Contact Info) Description 04/27/2007 Results Only [facility] - [facility] [address] [place] [address] Laura Ayon, PIN PUSHER [address] [place] [address] Social History Tobacco Use Types Packs/Day Years Used Date Smoking Tobacco: Never Assessed Sex and Gender Information Value Date Recorded Sex Assigned at Not on file Gender Identity Not on file Sexual Orientation Not on file documented as of this encounter Plan of Treatment Not on file documented as of this encounter Procedures Procedure Name Priority Date/Time Associated Diagnosis Comments CYTOPATHOLOGY Routine 04/27/2007 0:00 EST documented in this encounter Results * CYTOPATHOLOGY (04/27/2007 0:00 EST) Pathology Report: CYTOPATHOLOGY REPORT Reports generated via electronic interface contain original data; however they are lacking the format of the original report. Caution should be taken when reading/interpreti ng unformatted reports. Name: ? TATUM MURILLO ? Accession #: ? [id number] : ? 1950 (Age: 56) ??F ?Collect Date: ? 04/27/2007 Location: ? [facility] ? Receive Date: ? 04/29/2007 Provider: ?LAURA AYON PIN PUSHER Copy to: ? Specimen/Source: ?ThinPrep Pap Test, Cervix, processed on Code ScoutsPrep Imaging System, with manual evaluation Last Menstrual Period: ? SPECIMEN ADEQUACY ? Satisfactory for Evaluation - transformation zone component present GENERAL CATEGORIZATION ? Negative for Intraepithelial Lesion or Malignancy ? Document reviewed and electronically signed by: ? Liane Jennings, CT(ASCP) ? Report Date: ??04/30/2007 16:27 End of Report [facility] 04/27/2007 04/29/2007 Laura Ayon NP PATHOLOGY ORDERABLE S [facility] [address] [place] [address] documented in this encounter Visit Diagnoses Not on filedocumented in this encounter
--- OUTSIDE RECORDS SUMMARY | 2024-02-13 03:10 | XMS_ITS | Encounter Summary ---
Author Organization [facility] Address [address] [place] [address] Care Team Providers Care Graphics Production Specialist Name Role Phone Unavailable Primary Care Provider Unavailabl e Encounter Details Date Type Department Care Team (Late st Contact Info) Description 06/06/2014 Results Only [facility] [phone] Lindsay Garrison MD [address] [place] [address] Social History Tobacco Use Types Packs/Day Years Used Date Smoking Tobacco: Never Assessed Sex and Gender Information Value Date Recorded Sex Assigned at Not on file Gender Identity Not on file Sexual Orientation Not on file documented as of this encounter Plan of Treatment Not on file documented as of this encounter Procedures Procedure Name Priority Date/Time Associated Diagnosis Comments SURGICAL PATHOLOGY Routine 06/06/2014 8:41 EST documented in this encounter Results * SURGICAL PATHOLOGY (06/06/2014 8:41 EST) Pathology Report: SURGICAL PATHOLOGY REPORT Reports generated via electronic interface contain original data; however they are lacking the format of the original report. Caution should be taken when reading/interpret ing unformatted reports. Name: ? TATUM MURILLO ? Accession #: ? [id number] ? : ? 1950 (Age: 63) ??F ? Collect Date: ? 06/06/2014 ? Location: ? [facility] ? Receive Date: ? 06/07/2014 ? Provider: LINDSAY GARRISON MD Copy to: DARYN LOPEZ ELECTROSTATIC PAINT OPERATOR ? Final Pathologic Diagnosis: RECTUM, POLYP, BIOPSY: - ??Hyperplastic polyp. Document reviewed and electronically signed by: FAHAD SAINI MD Report ??Date: 06/07/2014 18:43 By the signature above, the attending physician certifies that he/she has personally conducted a gross and/or microscopic examination of the described specimens and rendered or confirmed the above diagnosis. Specimen(s) Received: Rectal polyp Clinical History: F/H colon cancer Gross Description: ? Received in formalin labelled with proper patient identification (initials K, A) and rectal polyp is a single pink-collins tissue fragment (0.8 x 0.2 x 0.1 cm). Submitted intact in block 1. Jen Dc 06/07/2014 08:58 AM End of Report [facility] 06/06/2014 8:41 EST 06/07/2014 8:41 EST Lindsay Garrison MD PATHOLOGY ORDERA TYE [facility] Organization Address City/State/ZIP Co de Phone Number [facility] [address] [place] [address] documented in this encounter Visit Diagnoses Not on filedocumented in this encounter
[2024-02-13 08:24] LABS: HCT 45.1 % (36.0-46.0); HGB 14.9 g/dL (11.2-15.7); MCH 30.7 pg (27.0-33.0); MCV 93 fL (80-95); MPV 10.6 fL (8.0-11.0); Platelet Count 242 10^3/uL (130-400); RBC 4.86 10^6/uL (3.93-5.22); RDW 13.2 % (11.7-14.6); RDW-SD 45.2 fL; WBC 5.49 10^3/uL (4.4-10.8)
[2024-02-13 09:18] LABS: ALT 21 U/L (14-59); AST 19 U/L (15-37); Albumin 3.5 g/dL (3.4-5.0); Alkaline Phosphatase 91 U/L (46-116); Anion Gap 5.1 mmol/L (3-11); BUN 17 mg/dL (7-18); Bilirubin, Total 0.68 mg/dL (0.2-1.0); CO2 28.9 mmol/L (21.0-32.0); CREATININE 0.9 mg/dL (0.55-1.02); Calcium 8.8 mg/dL (8.5-10.1); Chloride 105 mmol/L (98-107); Estimated GFR 67.08 (mL/min/1.73m2); Glucose 97 mg/dL (74-106); Potassium 4.4 mmol/L (3.5-5.1); Sodium 139 mmol/L (136-145); Total Protein 6.8 g/dL (6.4-8.2); Vitamin D 25 Total 58.5 ng/mL (30-100)
== END 2024-02-13 02:32 | disposition home or self-care (01) ==
LOC: LBO 02:32
PROVIDERS: PCP Student in an Organized Health Care Education/Training Program; Visit Provider Student in an Organized Health Care Education/Training Program
DX: E55.9 Vitamin D deficiency, unspecified; R09.81 Nasal congestion; K00.9 Disorder of tooth development, unspecified; J44.9 Chronic obstructive pulmonary disease, unspecified; M81.0 Age-related osteoporosis without current pathological fracture
CPT/HCPCS: 36415; 80053; 80061; 82306; 85027

== ENCOUNTER → 2024-03-31 14:35 | Outpatient (BNVA) | payer MEDICARE, BC, SELFPAY | PROVIDERS: PCP Student in an Organized Health Care Education/Training Program; Referring Provider Student in an Organized Health Care Education/Training Program; Visit Provider Physician Assistant Surgical | DX: J44.9 Chronic obstructive pulmonary disease, unspecified (principal); F17.210 Nicotine dependence, cigarettes, uncomplicated | CPT/HCPCS: 99214 ==

== ENCOUNTER 2024-04-20 02:35 | Outpatient (CLI) | payer MEDICARE, BC, SELFPAY ==
[2024-04-20 08:46] LABS: Anion Gap 8.1 mmol/L (3-11); BUN 18 mg/dL (7-18); CO2 28.9 mmol/L (21.0-32.0); Calcium 8.9 mg/dL (8.5-10.1); Calculated LDL 183 mg/dL (<100); Chloride 107 mmol/L (98-107); Cholesterol 274 mg/dL (<200); Estimated GFR 59.12 (mL/min/1.73m2); Glucose 96 mg/dL (74-106); HDL Cholesterol 67 mg/dL (40-60); Potassium 4.4 mmol/L (3.5-5.1); Sodium 144 mmol/L (136-145); TSH (W/Ref FT4) 2.49 uIU/mL (0.36-3.74); Triglyceride 120 mg/dL (<150)
== END 2024-04-20 02:36 | disposition home or self-care (01) ==
LOC: LBO 02:35
PROVIDERS: PCP Student in an Organized Health Care Education/Training Program; Referring Provider Student in an Organized Health Care Education/Training Program; Visit Provider Student in an Organized Health Care Education/Training Program
DX: R53.83 Other fatigue (principal); I10 Essential (primary) hypertension; E78.5 Hyperlipidemia, unspecified
CPT/HCPCS: 36415; 80048; 80061; 84443

== ENCOUNTER 2024-04-28 01:34 | Outpatient (CLI) | payer MEDICARE, BC, SELFPAY ==
--- NOTE | 2024-04-28 07:28 | DI.CTLCSR_ITS ---
Exam(s) CT CHEST LUNG CANCER SCREEN EXAM: CT CHEST LUNG CANCER SCREEN CLINICAL HISTORY: Screening for lung cancer,CURRENT SMOKER,F17.210 TECHNIQUE: Imaging Protocol: Axial computed tomography images with coronal and sagittal reformatted images were created and reviewed. Low dose screening protocol. COMPARISON: CT CT CHEST LUNG CANCER SCREEN from 04/21/2023 FINDINGS: Tracheobronchial tree: No bronchiectasis or mucus plugging. Mediastinum and Birgit: No dominant adenopathy or fluid collection. Pulmonary parenchyma: Hyperinflation. Mild apical scarring. No consolidation or dominant measurable mass. Moderate emphysematous changes. No significant interstitial changes. Lung Nodules: Few scattered micro nodules in the lower lobes. No suspicious nodules. Pleura: No effusion. No pneumothorax. Heart: The heart is not dilated. Mild coronary artery calcifications are seen. No pericardial effusio n. Aorta: Thoracic aorta non-dilated. Mild atherosclerotic changes. Upper abdomen: Unremarkable. Bones: Unremarkable for age. Soft Tissues: Unremarkable. IMPRESSION: No suspicious pulmonary nodules. Lung RADS Cat 2 - Benign Appearance / Behavior: Nodules with a very low likelihood of becoming a clin ically active cancer due to size or lack of growth Lung-RADS 1.0 CATEGORIES: Category 0 - Prior chest CT exam(s) being located for comparison. Category 1 - Annual screening in 12 months. No nodules or definitely benign nodules. Category 2 - Annual screening in 12 months. Benign appearance. Nodules with low likelihood of becomin g active cancer. Category 3 - 6-month follow-up. Probably benign. Short-term follow-up suggested. Nodules with low lik elihood of becoming active cancer. Category 4A - 3-month follow-up and CT/PET if >8 mm in size. Suspicious finding. Findings which requi re additional testing. Category 4B - Findings which require additional testing and tissue sampling. Category 4X - Category 3 or 4 nodules with additional features or imaging findings that increases the suspicion of malignancy. Modifier S- Potentially clinically significant findings (non lung cancer) RADIATION DOSE DELIVERED: !Error Total DLP DATA REPOSITORY: All CT scans at this facility are submitted to the National Radiology Data Registry (NRDR) Dose Index Registry (DIR) with the [employer] (ACR). RADIATION OPTIMIZATION: All CT scans at this facility use at least one of these dose optimization te chniques: automated exposure control; mA and/or kV adjustment per patient size (includes targeted exa ms where dose is matched to clinical indication); or iterative reconstruction.
== END 2024-04-28 01:54 ==
LOC: DI 01:34
PROVIDERS: PCP Student in an Organized Health Care Education/Training Program; Visit Provider Student in an Organized Health Care Education/Training Program
DX: Z12.2 Encounter for screening for malignant neoplasm of respiratory organs (principal); F17.210 Nicotine dependence, cigarettes, uncomplicated
CPT/HCPCS: 71271

== ENCOUNTER 2024-09-24 01:25 | Outpatient (CLI) | payer MEDICARE, BC, SELFPAY ==
[2024-09-24 09:36] LABS: Calculated LDL 109 mg/dL (<100); Cholesterol 186 mg/dL (<200); HDL Cholesterol 57 mg/dL (>or=50); Triglyceride 104 mg/dL (<150)
== END 2024-09-24 01:26 | disposition home or self-care (01) ==
PROVIDERS: PCP Nurse Practitioner Adult Health; Referring Provider Emergency Medicine; Visit Provider Emergency Medicine
DX: E78.5 Hyperlipidemia, unspecified (principal)
CPT/HCPCS: 36415; 80061

== ENCOUNTER → 2025-02-01 11:19 | Outpatient (BNVA) | payer MEDICARE, BC, SELFPAY | PROVIDERS: PCP Nurse Practitioner Adult Health; Referring Provider Nurse Practitioner Adult Health; Visit Provider Student in an Organized Health Care Education/Training Program | DX: R14.0 Abdominal distension (gaseous) (principal); K25.9 Gastric ulcer, unspecified as acute or chronic, without hemorrhage or perforation | CPT/HCPCS: 99213 ==

== ENCOUNTER 2025-02-17 12:07 | Outpatient (REF) | payer MEDICARE, BC, SELFPAY ==
[2025-02-17 15:07] LABS: Glucose Negative (Negative)
[2025-02-17 15:23] LABS: C & S Indicated? Yes; WBC >50 HPF (0-5)
== END 2025-02-17 12:08 | disposition home or self-care (01) ==
LOC: LBN 12:07
PROVIDERS: PCP Nurse Practitioner Adult Health; Visit Provider Nurse Practitioner Adult Health
DX: R30.0 Dysuria (principal)
CPT/HCPCS: 81003; 81015; 87086

== ENCOUNTER 2025-02-25 09:11 | Day surgery (SDC) | payer MEDICARE, BC, SELFPAY ==
[2025-02-25 09:43] VITALS: BP 121/77; PULSE 80; RESP 16; TEMP 36.8; O2SAT 96
[2025-02-25] MEDS: Lactated Ringers 1,000 ML 80 ML IV (10:03)
[2025-02-25 11:10] VITALS: BMI 23.0
--- NOTE | 2025-02-25 11:10 | W.ANESPRE ---
General Info Date of Service Date Performed: 02/25/25 Height: 5 ft 4 in Weight: 60.8 kg Body Mass Index (BMI): 23.0 Surgical Procedure: Operation Date: 02/25/25 11:50 Proposed Procedure Side Surgeon p Gastroscopy Jessie Abreu MD Meds Allergies and Home Medications Allergies Allergy/AdvReac Type Severity Reaction Status Date / Time Sulfa (Sulfonamide Allergy Unknown stomach Verified 02/25/25 09:34 Antibiotics) pains alendronate sodium AdvReac Intermediate GI Verified 02/25/25 09:34 INTOLERANCE & ARM RASH seasonal Allergy Unknown Other (See Uncoded 02/25/25 09:34 Comment) Home Medication ?Medication ?Instructions ?Recorded acetaminophen 325 mg tablet 325 mg PO PRN PRN 09/25/12 probiotics 1 tab PO DAILY 08/07/18 tumeric 1 cap PO DAILY 08/07/18 Inhaler, Assist Devices [Pocket 1 ea miscellaneous DIRECTED ##0 11/19/21 Chamber] cholecalciferol (vitamin D3) 50 50 mcg PO DAILY 11/22/22 mcg (2,000 unit) capsule tiotropium 2.5 mcg-olodaterol 2.5 2 puff inhalation DAILY #4 grams 03/31/24 mcg/actuation mist for inhalation (Stiolto Respimat) ipratropium 20 mcg-albuterol 100 See Rx Instructions .Route 04/19/24 mcg/actuation mist for inhalation .COMPLEX #4 grams (Combivent Respimat) mirtazapine 7.5 mg tablet 7.5 mg PO QHS #90 tabs 06/24/24 famotidine 40 mg tablet 40 mg PO BID #180 tabs 01/27/25 Current Visit Medications: Current Medications Generic Name Dose Route Start Last Admin Trade Name Freq PRN Reason Stop Dose Admin Ringer's Solution 1,000 mls @ 80 mls/hr 02/25/25 06:00 02/25/25 10:03 IV 02/25/25 23:59 80 mls/hr INFUSION WINNIE Administration IV Miscellaneous Supplies 1 each 02/25/25 06:00 Iv Access IV 02/25/25 23:59 DIRECTED WINNIE Sodium Chloride 0 ml 02/25/25 06:00 Normal Saline Flush 10 Ml Syr IV 02/25/25 23:59 PRN PRN Sodium Chloride 0 ml 02/25/25 06:00 Normal Saline 10 Ml Vial IJ 02/25/25 23:59 DIRECTED PRN Sterile Water 0 ml 02/25/25 06:00 Water,Injection,Sterile 10 Ml Vial IJ 02/25/25 23:59 DIRECTED PRN PFSH Active Problems Active Problems: Problem Status Onset Code Gastric ulcer Acute K25.9 Abnormal auditory perception of both ears Acute H93.293 Hearing loss Acute H91.90 Tendinitis of finger of right hand Acute M77.8 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 Acute M15.2 Finger pain, right Acute M79.644 Sinus pain Acute J34.89 Nasal congestion Acute R09.81 Nicotine dependence, cigarettes, uncomplicated Acute F17.210 Nuclear age-related cataract, right eye Resolved H25.11 Nuclear age-related cataract, left eye Resolved H25.12 Skin rash Acute R21 Dental anomaly Acute K00.9 COPD (chronic obstructive pulmonary disease) Chronic J44.9 Bloating Acute R14.0 Screening for colon cancer Acute Z12.11 Seasonal allergies Acute J30.2 Viral gastritis Acute K29.70 Dehydration Acute E86.0 Sialolith Acute K11.5 Cataracts, bilateral Acute H26.9 Eyesight diminished Acute H54.7 URI (upper respiratory infection) Acute J06.9 Sleep difficulties Acute G47.9 IBS (irritable bowel syndrome) Chronic K58.9 Vitamin D deficiency, unspecified Acute 09/17/11 E55.9 Tobacco use disorder Acute 04/10/15 F17.200 Osteoporosis Acute 09/17/11 M81.0 Microscopic colitis Acute 06/07/14 K52.839 Menopausal flushing Acute 02/17/13 N95.1 Hyperlipidemia, unspecified Acute 04/10/15 E78.5 Family history of colon cancer Acute 02/10/13 Z80.0 Anxiety Acute 02/04/12 F41.9 Advance directive in chart Acute 04/17/16 Z78.9 Medical History Medical History Abnormal CT lung screening Microscopic colitis Postmenopausal Hyperlipidemia Anxiety Osteoporosis Surgical History Surgical History Tubal Ligation, 1980s Colonoscopy - IV Sedation (06/06/14) Dr Quintanilla Tobacco Smoking/Tobacco Use Status: Current every day Tobacco Type: cigarettes Smoking packs per day: 0.75 Passive smoking exposure: Yes Alcohol Alcohol Intake: current Alcohol intake frequency: holidays/special occasions only Substance Use Substance use: Never Substance use type: does not use Vital Signs and Lab Results Vital Signs Most Recent Vital Signs in EMR: Most Recent Vital Signs Temp Pulse Resp BP Pulse Ox 36.8 C 80 16 121/77 96 02/25/25 09:43 02/25/25 09:43 02/25/25 09:43 02/25/25 09:43 02/25/25 09:43 Imaging and Studies Imaging and Studies Study information below may be from another EMR and interpreted by another provider. Please see original notes in EMR for more complete details. EKG Summary: 11/19/2021 Conclusion Sinus rhythm...normal P axis, V-rate 60- 99 Low voltage, extremity and precordial leads...extremity<0.5mV, precordial<1.0mV sinus rhythm, normal axis, normal intervals, non ischemic Pulmonary Function Summary: 01/28/2022 Pulmonary Function Test Result Requesting Provider Amparo Brewer Indications: ADHIKARI Interpretation Spirometry: There is moderate airflow limitation. There is no significant bronchodilator response. There is inspiratory loop blunting. Impression Moderate airflow obstruction. Inspiratory loop blunting in the correct clinical context could represent vocal cord dysfunction. Clinical Correlation therefore is recommended. Anesthesia Assessment and Plan Anesthesia History Personal History: No History of Anesthesia Complications Family History: No Family History of Anesthesia Complications Exercise Tolerance Exercise Tolerance: Metabolic Equivalents>4 Pertinent Negatives Pertinent Negatives: No Symptoms of GERD Cardiac & Pulmonary Exam Cardiac Exam: Normal S1/S2 Heart Sounds Pulmonary Exam: Clear Bilateral Breath Sounds Implantable Cardiac Device Does patient have a Pacemaker or an ICD?: No Airway Exam Known Difficult Airway: No Mallampati Class: 2 Mouth Opening: Normal (> 3cm) Thyromental Distance: Greater than 3 cm Neck Range of Motion: Full ROM Neck Circumference: Normal Teeth Condition: Normal Dentition ASA Classification ASA Score: ASA 2 Emergency Case?: No NPO Status NPO Status: NPO Clears >2 hours, Solids >8 hours Anesthesia Plan Resuscitation Status: Full Code Anesthesia Technique: General Anesthesia Airway Planned: Natural Airway Monitors Used: Standard Monitors
--- NOTE | 2025-02-25 11:30 | BOWEL_PTH ---
PATIENT: Charley Murillo LOC: [facility] U#:[id number] AGE/SX: 74/F ROOM: RE02/25/[address]: Jessie Abreu : 1950 BED: DIS: 02/25/2025 SPEC #: [id number] RECD: 02/25/25 12:31 STATUS: JOANNA REQ #: [id number] MATY: 02/25/25 11:[address]: Jessie Abreu DEPT: Surgical Specimen RECD BY: Di Garland ENTERED: 02/25/25 12:32 SP TYPE: Bowel OTHR DR: Suzan Sevilla, PERLA Tissues: 1 - BIOPSY BOWEL 2 - STOMACH BIOPSY 3 - ESOPHAGUS BIOPSY Procedures: GROSS AND MICRO LEVEL 4 Comments: [id number]
[2025-02-25 11:39] VITALS: BP 93/58; PULSE 74; RESP 16; TEMP 36; O2SAT 95
--- NOTE | 2025-02-25 11:41 | W.PM.DSUDISC ---
Date of service: 02/25/25 Discharge Plan Disposition Patient Disposition: Home Condition: Good Discharge Details Reason For Visit: History of gastric ulcer, GERD, abdominal bloating Attending Provider: Jessie Abreu Primary Care Provider: Suzan Sevilla Home Meds and New Rx's Prescriptions: Continued Stiolto Respimat 2.5-2.5 mcg/actuation mist 2 puff inhalation DAILY Qty: 4 12RF tumeric 1 cap PO DAILY probiotics 1 tab PO DAILY cholecalciferol (vitamin D3) 50 mcg (2,000 unit) capsule 50 mcg PO DAILY famotidine 40 mg tablet 40 mg PO BID Qty: 180 3RF Rx Instructions: Continue for gastritis, due to possible rxn to PPI mirtazapine 7.5 mg tablet 7.5 mg PO QHS Qty: 90 1RF Rx Instructions: Continue; may take half PRN change in sleep. acetaminophen 325 MG tablet 325 mg PO PRN PRN Combivent Respimat 20-100 mcg/actuation mist See Rx Instructions .ROUTE .COMPLEX Qty: 4 12RF Dose Instruction: INHALE 1 PUFF BY MOUTH EVERY 6 HOURS (USE INSTEAD OF ALBUTEROL) Rx Instructions: INHALE 1 PUFF BY MOUTH EVERY 6 HOURS (USE INSTEAD OF ALBUTEROL) Inhaler, Assist Devices [Pocket Chamber] 1 ea miscellaneous DIRECTED Qty: 0 0RF Discharge Instructions Instructions: Gastritis Additional Instructions: Your upper endoscopy went well today. You did have some evidence of irritation/inflammation of the stomach however no evidence of a gastric ulcer. Some routine biopsies were obtained as discussed. We will reach out once the pathology returns in 7-14 days. Please contact the general surgery office if you have any questions or concerns. 1. Do not drive, drink alcohol, operate machinery, make critical decisions, or do activities that require coordination or balance for 24 hours. 2. Because air was put into your stomach during the procedure, expelling air or burping is normal after the procedure. 3. Go directly to the emergency room if you notice any of the following: Develop chills (warm to touch), or if you have a thermometer and your temperature is above 101 Difficulty breathing or difficultly swallowing Persistent vomiting Severe abdominal pain, other than gas cramps Severe chest pain Black, tarry stools Any bleeding ? exceeding one tablespoon 4. Call your physician if the site where your intravenous was started becomes red, swollen, painful, and warm to touch. 5. Your physician has reviewed your pre-procedure medications. Please continue to take those medications as previously ordered. You will be given specific information/education regarding any changes to your medications before leaving. Stand Alone Forms: Anesthesia Discharge Candi Rocha (DSU) Activity:: Activity as Tolerated Diet:: As Tolerated Discharge Orders Discharge Orders: Discharge Order (Routine); Ordered 02/25/25 Ordered By: Jessie Abreu
--- NOTE | 2025-02-25 11:45 | W.PM.ENDDOP ---
Date of service: 02/25/25 Time of Service: 11:45 Endoscopy Report DATE OF PROCEDURE: 02/25/25 PRE-OP DIAGNOSIS: History of gastric ulcer, GERD, abdominal bloating POST-OP DIAGNOSIS: same PROCEDURE: Upper endoscopy with biopsy SURGEON: Jessie Abreu ANESTHESIA TYPE: General:No Airway ESTIMATED BLOOD LOSS: 1 PATHOLOGY: other (Biopsy of duodenum, antrum and GE junction. ) COMPLICATIONS: None DISPOSITION: PACU INDICATIONS: Patient is a 74 yo female who presents for upper endoscopy given history of a gastric ulcer as well as ongoing reflux and abdominal bloating. FINDINGS: Upper endoscopy performed without difficulty. Cold forcep biopsy of duodenum, antrum and GE junction. Evidence of diffuse gastritis. PROCEDURE DESCRIPTION: After adequate sedation, the upper endoscope was inserted and advanced in the duodenum under direct visualization. The scope was withdrawn and the mucosa inspected. The duodenum appeared normal and a biopsy with cold forceps was performed of the duodenum. The stomach was normal with no evidence of ulcerations or erosions. There was evidence of diffuse gastritis.?The antrum area was biopsied and also checked for H. pylori.? Retroflexion view in the stomach was normal. At the lower esophagus Z line area, this was inspected and noted to be normal. No evidence of Bhakta?s esophagus or strictures. A cold forcep biopsy of the GE junction was performed. Otherwise, the esophagus was normal. The scope was completely withdrawn from the patient. The patient tolerated the procedure well with no immediate complications.
--- NOTE | 2025-02-25 11:53 | W.ANESPOSTOP ---
Postoperative Evaluation Date, Time and Location Date Performed: 02/25/25 Time Performed: 11:53 Patient Location: Day Surgery Unit Vital Signs Most Recent Imported Vital Signs: Most Recent Vital Signs Temp Pulse Resp BP Pulse Ox 36 C L 74 16 93/58 L 95 02/25/25 11:39 02/25/25 11:39 02/25/25 11:39 02/25/25 11:39 02/25/25 11:39 Pain Score Most Recent Pain Score: Most Recent Pain Score Pain Level 0 02/25/25 11:39 Assessment Mental Status: Awake (Alert & Oriented to Patient Baseline) Airway and Respiratory Function: Patent airway with normal (patient baseline) respiratory exam Cardiovascular Function: Hemodynamically Stable Hydration Status: Adequately Hydrated Nausea & Vomiting: No Nausea or Vomiting Pain: Pt. Denies Any Pain Peripheral Nerve Block: Patient did not receive a nerve block
[2025-02-25 11:57] VITALS: BP 120/76; PULSE 65; RESP 16; TEMP 36.1; O2SAT 97
== END 2025-02-25 12:25 | disposition home or self-care (01) ==
PROVIDERS: PCP Nurse Practitioner Adult Health; Visit Provider Student in an Organized Health Care Education/Training Program
PROC: 0DJ68ZZ Inspection of Stomach, Via Natural or Artificial Opening Endoscopic (ICD-10-PCS; CPT 43235; principal; 2025-02-25 11:45)
DX: K21.9 Gastro-esophageal reflux disease without esophagitis (principal); R14.0 Abdominal distension (gaseous); K29.70 Gastritis, unspecified, without bleeding; K22.9 Disease of esophagus, unspecified
CPT/HCPCS: 43239; 88305; J2003; J2704

== ENCOUNTER → 2025-04-04 12:43 | Outpatient (BNVA) | payer MEDICARE, BC, SELFPAY | PROVIDERS: PCP Nurse Practitioner Adult Health; Referring Provider Student in an Organized Health Care Education/Training Program; Visit Provider Physician Assistant Surgical | DX: J44.9 Chronic obstructive pulmonary disease, unspecified (principal); F17.210 Nicotine dependence, cigarettes, uncomplicated; Z23 Encounter for immunization | CPT/HCPCS: 99214; 90471; 90653 ==

== ENCOUNTER → 2025-05-03 00:17 | Outpatient (CLI) | payer MEDICARE, BC, SELFPAY ==
--- NOTE | 2025-05-03 10:42 | DI.CTLCSR_ITS ---
Exam(s) CT CHEST LUNG CANCER SCREEN EXAM: CT CHEST LUNG CANCER SCREEN CLINICAL HISTORY: Screening for lung cancer,former tobacco use,z87.891 TECHNIQUE: Imaging Protocol: Axial computed tomography images with coronal and sagittal reformatted images were created and reviewed. Lung Computer Aided Detection (CAD) was utilized. COMPARISON: CT CT CHEST LUNG CANCER SCREEN from 04/28/2024 FINDINGS: Tracheobronchial tree: Patent where visualized. No bronchiectasis. Pulmonary parenchyma: No consolidation or dominant measurable mass. Emphysematous changes are present in the lungs. Lung Nodules: There are no suspicious pulmonary nodules. Mediastinum and Birgit: No dominant adenopathy or fluid collection. The esophagus is unremarkable. Thyroid gland: Unremarkable. Lymph nodes: Unremarkable. Pleura: No effusion or pneumothorax. Heart: The heart is not dilated. Coronary artery calcification is present. No pericardial effusion. Aorta: Thoracic aorta non-dilated.Atherosclerotic calcification is present. Upper abdomen: Unremarkable. Soft Tissues: Unremarkable. Bones: Within normal limits. IMPRESSION: There are no suspicious pulmonary nodules. Lung RADS Cat 1 - Negative: No nodules and definitely benign nodules Lung-RADS 1.0 CATEGORIES: Category 0 - Prior chest CT exam(s) being located for comparison. Category 1 - Annual screening in 12 months. No nodules or definitely benign nodules. Category 2 - Annual screening in 12 months. Benign appearance. Nodules with low likelihood of becoming active cancer. Category 3 - 6-month follow-up. Probably benign. Short-term follow-up suggested. Nodules with low likelihood of becoming active cancer. Category 4A - 3-month follow-up and CT/PET if >8 mm in size. Suspicious finding. Findings which require additional testing. Category 4B - Findings which require additional testing and tissue sampling. Suspicious finding. Category 4X - Category 3 or 4 nodules with additional features or imaging findings that increases the suspicion of malignancy. Modifier S- Potentially clinically significant finding. (Non lung cancer) RADIATION DOSE DELIVERED: 22.91mGy.cm Total DLP 22.91mGy.cmTotal DLP DATA REPOSITORY: All CT scans at this facility are submitted to the National Radiology Data Registry (NRDR) Dose Index Registry (DIR) with the [employer] ([employer]). RADIATION OPTIMIZATION: All CT scans at this facility use at least one of these dose optimization techniques: automated exposure control; mA and/or kV adjustment per patient size (includes targeted exams where dose is matched to clinical indication); or iterative reconstruction.
== END ==
LOC: DI 00:17
PROVIDERS: PCP Nurse Practitioner Adult Health; Visit Provider Physician Assistant Surgical
DX: Z12.2 Encounter for screening for malignant neoplasm of respiratory organs (principal); F17.210 Nicotine dependence, cigarettes, uncomplicated
CPT/HCPCS: 71271